=== PATIENT | female | born 1945 | race Caucasian/White ===

== ENCOUNTER 2017-08-21 19:09 | Inpatient (IN) | payer OTHER ==
[~2017-08-21] VITALS: Ht 162.6 cm; Wt 81.6 kg
--- NOTE | 2017-08-21 19:00 | NUR ---
Pt arrived via gurney, accompanied by family member. No apparent distress noted. Denies pain at this time. Breathing even and unlabored with normal respiration. Midline on SREE intact and patent. pertinent assessments done. Skin is intact. MD made aware regarding med reconciliation. Vital signs stable. MRSA swab done and sent to lab. Call light placed within reach. Safety and fall precautions observed and maintained. All needs attended.
[2017-08-21 20:30] VITALS: BP 127/60
[2017-08-21] MEDS ORDERED: VANC1PLA9 IV (20:56)
[2017-08-22 08:11] VITALS: BP 145/76
--- NOTE | 2017-08-22 10:00 | NUR ---
pt seen on rounding. pt continues to be alert and oriented x4. yvrose elevated. other vitals stable. pt complained of pain on movement. received report from jewelry enameler nurse that no med recon was done. contacted md during shift. md ordered to have meds from [facility] placed on med recon and he will continue it later. current meds from [facility] placed. awaiting md to continue medications.
[2017-08-22] MEDS ORDERED: ZOLP5TAB2 PO (10:59)
[2017-08-22] MEDS ORDERED: RIVA10TA PO (10:59)
[2017-08-22] MEDS ORDERED: HYDR-4075 IVP (10:59)
[2017-08-22] MEDS ORDERED: MAGN400O6 PO (10:59)
[2017-08-22] MEDS ORDERED: ACET-1467 PO (10:59)
[2017-08-22] MEDS ORDERED: ALBU2.5V38 IH (10:59)
[2017-08-22] MEDS ORDERED: DOCU-141 PO ×2 (10:59)
[2017-08-22] MEDS ORDERED: ONDA4TAB5 IVP (10:59)
[2017-08-22] MEDS ORDERED: DIPH25CA83 PO (10:59)
[2017-08-22] MEDS ORDERED: MAGN30OR PO (10:59)
[2017-08-22] MEDS ORDERED: HYDR-548 PO (10:59)
[2017-08-22] MEDS ORDERED: PANT40TA2 PO (10:59)
[2017-08-22] MEDS ORDERED: MORP15TA IM (10:59)
[2017-08-22] MEDS ORDERED: SENN-18 PO (10:59)
[2017-08-22] MEDS ORDERED: ACET-2154 PO (10:59)
[2017-08-22] MEDS ORDERED: DEXTROSE 50% 50 ML DISP.SYRIN IV PRN (11:00)
[2017-08-22] MEDS: BLOOD SUGAR DIAGNOSTIC 1 EACH STRIP VI SCH ×3 (11:48→20:20)
[2017-08-22] MEDS: INSULIN REGULAR, HUMAN 300 UNIT/3 ML VIAL SQ PRN ×3 (11:59→20:21)
[2017-08-22] MEDS ORDERED: ALBUTEROL SULFATE 2.5 MG/3 ML NEBU IH PRN (16:00)
[2017-08-22] MEDS ORDERED: ZOLPIDEM 5 MG TABLET PO PRN (16:00)
[2017-08-22] MEDS ORDERED: ACETAMINOPHEN 325 MG TABLET PO PRN (16:00)
[2017-08-22] MEDS ORDERED: SENNOSIDES 1 TABLET PO PRN (16:00)
[2017-08-22] MEDS ORDERED: BISACODYL 5 MG TABLET.DR PO ONE (16:15)
[2017-08-22] MEDS ORDERED: DOCUSATE SODIUM 250 MG CAPSULE PO PRN (16:30)
[2017-08-22] MEDS ORDERED: MAG HYDROX/AL HYDROX/SIMETH 30 ML LIQUID UDC PO PRN (16:45)
[2017-08-22] MEDS: RIVAROXABAN 10 MG TABLET PO SCH (17:07)
--- NOTE | 2017-08-22 17:43 | NUR ---
CLINICAL PHARMACY NOTE:VANCOMYCIN DOSING Request for vancomycin dosing on 71 y/o female 162.56 cm tall and weight 81.647 for cellulitis of hip. Patients transfered from [facility] to [facility]. Patient was started on vancomycin at [place]. Temp 98.8 BUN 16 Scr 0.9 WBC 5.1 vancomycin 1gm ivpb q18h estimate trough 14. Will order trough level prior to 4th dose. Will continue to monitor
--- NOTE | 2017-08-22 19:00 | NUR ---
pt stable throughout the day. pt continues to have pain on movement. pt given bisacodyl and had a bm. reconed the meds and given xarelto. pumps on. no new orders. will endorse to night warehouse manager nurse.
[2017-08-22 19:30] VITALS: BP 149/69
--- NOTE | 2017-08-22 19:30 | NUR ---
Received patient from day shift nurse. Report given at bedside. Patient is A/O x4, Tajik/Micronesian speaking, able to make needs known. No current signs of pain, sob, or acute distress noted. BP slightly elevated at 149/69 at start of shift. Will re assess BP later in shift. Patient noted with left upper arm midline double lumen 18G. IV site is clean, dry, intact, with no s/s of redness or infection. Midline is flushing well. Room checked for safety at start of shift. Bed placed in low position. Bed alarm on. Call light within reach. will continue to monitor through shift.
[2017-08-22] MEDS ORDERED: VANCOMYCIN IV 1 G in PREMIXED 0 EACH IV SCH (21:00)
--- NOTE | 2017-08-23 05:54 | NUR ---
Patient was awake for most of the shift. No acute distress noted. Patient had Right hip pain but refused pain meds stating "I'm not psycho person to get medication". Educated pt about pain medication. Still refused. Repositioned & turned every 2 hours. Incision site kept clean, dry, intact. No s/s of redness or swelling noted. All needs attended to. Bed huber offered through shift. All meds administered per MD order. Safety measures implemented. Call light within reach of pt. Will endorse to day shift nurse.
[2017-08-23] MEDS: PANTOPRAZOLE SODIUM 40 MG TABLET.DR PO SCH (06:21)
[2017-08-23] MEDS: BLOOD SUGAR DIAGNOSTIC 1 EACH STRIP VI SCH ×4 (06:36→20:13)
[2017-08-23] MEDS: INSULIN REGULAR, HUMAN 300 UNIT/3 ML VIAL SQ PRN ×4 (07:59→20:15)
[2017-08-23 08:00] VITALS: BP 141/69
--- NOTE | 2017-08-23 08:22 | NUR ---
patient noted resting in bed, facial cues of pain noted, when offered pain medication patient refused, will retry to administer pain medication, call light in reach, surgical dressing intact on right hip, no drainage noted, bed locked and in lowest position, x 2 bed rails, placed on bed huber at this time, linens changed at this time, repositioned on left lateral side
[2017-08-23] MEDS: HYDROCODONE/APAP 5-325MG TABLET PO PRN ×3 (08:42→21:35)
[2017-08-23] MEDS ORDERED: VANCOMYCIN IV 1 G in PREMIXED 0 EACH IV SCH (09:44)
--- NOTE | 2017-08-23 13:31 | NUR ---
CLINICAL PHARMACY NOTE:VANCOMYCIN DOSING To continue vancomycin dosing on 71 y/o female 162.56 cm tall and weight 81.647 for cellulitis of hip. Patients transfered from [facility] to [facility]. Patient was started on vancomycin at [place]. Temp 97.9 BUN 16 (3/7) Scr 0.9 (3/7) WBC 5.1 (3/7) Assessment/Plan Will continue vancomycin 1gm ivpb q18h estimate trough 14. 2nd dose today at 1500. Will order trough level prior to 4th dose (not ordered yet). Will continue to monitor
[2017-08-23] MEDS: VANCOMYCIN IV 1 G in PREMIXED 0 EACH IV SCH (14:39)
[2017-08-23] MEDS: RIVAROXABAN 10 MG TABLET PO SCH (17:10)
--- NOTE | 2017-08-23 19:30 | NUR ---
Received patient from day shift nurse. Patient currently lying in bed comfortably denying pain. No signs of acute distress or sob noted. Pertinent assessment completed. Right hip incision clean, dry, intact. No signs of infection, redness, or swelling noted. Vital signs WNL. patient is able to make needs known. Bed in low position x2 side rails up. Call light within reach. Will continue to monitor patient through shift.
--- NOTE | 2017-08-23 19:55 | NUR ---
New order from MD Ang for Dulcolax supp HS PRN. Patient stating that she hasn't had a BM for 8 days. Will carry out order & continue to monitor pt through shift.
[2017-08-23] MEDS ORDERED: BISACODYL 10 MG SUPP.RECT RC PRN (20:00)
[2017-08-23 20:12] VITALS: BP 127/63
[2017-08-24] MEDS: HYDROCODONE/APAP 5-325MG TABLET PO PRN ×3 (05:38→14:16)
--- NOTE | 2017-08-24 05:46 | NUR ---
Patient noted with constipation. No BM during shift. Administered Dulcolax supp per MD order. Patient refused to be given supp at night and wanted it in AM. Will endorse to day shift nurse to monitor for BM. Patient stable through shift. No acute distress noted. Still complaining of right hip pain. Administered pain meds as ordered per MD. Right hip incision kept clean, dry, intact. No s/s of redness, inflammation, or infection. all needs attended to. Safety measures implemented. Call light within reach. Will endorse to day shift RN.
[2017-08-24] MEDS: PANTOPRAZOLE SODIUM 40 MG TABLET.DR PO SCH (06:17)
[2017-08-24] MEDS: BLOOD SUGAR DIAGNOSTIC 1 EACH STRIP VI SCH ×4 (06:33→20:43)
--- NOTE | 2017-08-24 08:00 | NUR ---
patient noted resting in bed with eyes closed, no facial cues of pain, no signs of distress noted, call light in reach, bed locked and in lowest position, x 2 bed rails
[2017-08-24] MEDS: INSULIN REGULAR, HUMAN 300 UNIT/3 ML VIAL SQ PRN ×4 (08:04→20:45)
[2017-08-24] MEDS: VANCOMYCIN IV 1 G in PREMIXED 0 EACH IV SCH (08:08)
[2017-08-24 08:13] VITALS: BP 116/55
[2017-08-24 08:15] LABS: THYROID STIMULATING HORMONE 1.997 mIU/mL (0.358-3.740)
[2017-08-24 08:31] LABS: BASOPHILS % (AUTO) 0.8 % (0.0-2.0); EOSINOPHILS # (AUTO) 0.3 K/uL (0.0-0.7); EOSINOPHILS % (AUTO) 4.6 % (0.0-7.0); HEMATOCRIT 26.7 % (31.2-41.9); HEMOGLOBIN 8.7 g/dL (10.9-14.3); LYMPHOCYTES # (AUTO) 1.1 K/uL (20.0-40.0); LYMPHOCYTES % (AUTO) 20.4 % (20.5-51.5); MEAN CORPUSCULAR HEMOGLOBIN 25.5 uug (24.7-32.8); MEAN CORPUSCULAR HGB CONC 33 g/dL (32.3-35.6); MEAN CORPUSCULAR VOLUME 78.4 fL (75.5-95.3); MONOCYTES # (AUTO) 0.5 K/uL (2.0-10.0); MONOCYTES % (AUTO) 8.1 % (0.0-11.0); NEUTROPHILS # (AUTO) 3.7 K/uL (1.8-8.9); NEUTROPHILS % (AUTO) 66.1 % (38.5-71.5); PLATELET COUNT (AUTO) 385 K/uL (179-408); RED BLOOD CELL COUNT(AUTO) 3.41 MIL/uL (3.63-4.92)
[2017-08-24 08:32] LABS: WHITE BLOOD COUNT (AUTO) 5.6 K/uL (3.8-11.8)
[2017-08-24 09:54] LABS: BILIRUBIN,TOTAL 0.3 mg/dL (0.2-1.0); MAGNESIUM 1.9 mg/dL (1.8-2.4); PHOSPHOROUS 3.8 mg/dL (2.5-4.9); TOTAL PROTEIN, SERUM 7.3 g/dL (6.4-8.2)
--- NOTE | 2017-08-24 12:17 | NUR ---
CLINICAL PHARMACY NOTE:VANCOMYCIN DOSING To continue vancomycin dosing on 71 y/o female 162.56 cm tall and weight 81.647 for cellulitis of hip. Patients transfered from [facility] to [facility]. Patient was started on vancomycin at [place]. Temp 98.6 BUN 20 scr 1.0 WBC 5.6 Assessment/Plan Will continue vancomycin 1gm ivpb q18h estimate trough 14. 3rd dose given today at 0800. Will order trough level prior to 4th dose (ordered for tomorrow at 0230). Will continue to monitor
--- NOTE | 2017-08-24 13:15 | NUR ---
INTERDISCIPLINARY TEAM CONFERENCE
[2017-08-24] MEDS: RIVAROXABAN 10 MG TABLET PO SCH (17:02)
[2017-08-24 19:30] VITALS: BP 126/61
--- NOTE | 2017-08-24 19:30 | NUR ---
Patient currently lying in bed comfortably with no acute distress noted. A/Ox4, Dominican speaking, able to make needs known. Pertinent assessment completed. Vital signs within range at start of shift. Right hip incision clean, intact, dry, no s/s of redness or infection at surgical site. Right hip dressing intact and clean. Bed placed in low position, locked, x2 side rails up. Call light within reach. Will continue to monitor through shift.
[2017-08-24] MEDS: ATORVASTATIN 20 MG TABLET PO SCH (20:43)
[2017-08-24] MEDS: GLIMEPIRIDE 2 MG TABLET PO SCH (20:43)
[2017-08-25] MEDS: VANCOMYCIN IV 1 G in PREMIXED 0 EACH IV SCH ×3 (02:25→20:46)
--- NOTE | 2017-08-25 05:54 | NUR ---
Patient slept intermittently through shift. No acute distress noted. Pain meds administered for right hip pain. All needs attended to. Right hip incision kept clean, dry, intact. No s/s of infection or inflammation. Safety measures implemented. call light within reach. will endorse to day shift nurse.
[2017-08-25] MEDS: BLOOD SUGAR DIAGNOSTIC 1 EACH STRIP VI SCH ×4 (06:37→20:45)
[2017-08-25] MEDS: PANTOPRAZOLE SODIUM 40 MG TABLET.DR PO SCH (06:37)
[2017-08-25 07:00] VITALS: BP 157/76
--- NOTE | 2017-08-25 07:53 | NUR ---
patient noted resting in bed with eyes closed, no facial cues of pain noted, no signs of distress, call light in reach, bed locked and in lowest position, x 2 bed rails, bed alarm in place
[2017-08-25] MEDS: GLIMEPIRIDE 2 MG TABLET PO SCH ×2 (08:43→18:10)
[2017-08-25] MEDS: HYDROCODONE/APAP 5-325MG TABLET PO PRN ×2 (08:43→18:52)
[2017-08-25] MEDS: INSULIN REGULAR, HUMAN 300 UNIT/3 ML VIAL SQ PRN ×2 (12:24→21:09)
[2017-08-25] MEDS ORDERED: OXYCODONE HCL 10 MG TAB.SR.12H PO SCH (13:00)
--- NOTE | 2017-08-25 14:45 | NUR ---
CLINICAL PHARMACY NOTE:VANCOMYCIN DOSING S: To continue vancomycin dosing on 71 y/o female 162.56 cm tall and weight 81.647 for cellulitis of hip. Patients transfered from [facility] to [facility]. Patient was started on vancomycin at [place]. O: Temp 98 BUN 20 (3/9) scr 1.0 (3/9) WBC 5.6 (3/9) vanco trough level: 17.1 mcg/ml Assessment/Plan Will continue same dose of vancomycin 1gm ivpb q18h for today since vanco trough level is within therapeutic range. Next dose is due today at 2100. Will continue to monitor
[2017-08-25] MEDS: OXYCODONE HCL 10 MG TAB.SR.12H PO SCH ×2 (15:02→21:10)
[2017-08-25] MEDS: RIVAROXABAN 10 MG TABLET PO SCH (18:11)
[2017-08-25] MEDS ORDERED: diphenhydrAMINE 25 MG CAP PO PRN (18:15)
[2017-08-25] MEDS: diphenhydrAMINE 25 MG CAP PO PRN (18:52)
--- NOTE | 2017-08-25 18:56 | NUR ---
patient states she feels itchy, MD Ang notified with orders for benadryl 25 mg capsule Q6 Hour as needed, PRN given at this time
--- NOTE | 2017-08-25 19:35 | NUR ---
Pt resting comfortably in bed. AAO x4. No acute distress noted. C/o pain on right hip, on surgical site. Will f/u with intervention. Safety measures maintained. Call light and personal belongings within reach. Will continue to monitor.
[2017-08-25 19:41] VITALS: BP 126/63
[2017-08-25] MEDS: ATORVASTATIN 20 MG TABLET PO SCH (20:45)
--- NOTE | 2017-08-25 21:00 | NUR ---
Pt refused scheduled Oxycodone. Risks and benefits explained, teachings provided. C/o pain on the right hip, surgical site. Given ice pack to relieve pain. As per patient, she developed itchiness on her body when she took the afternoon dose of oxycodone and the itchiness is making her really uncomfortable. No signs or c/o difficulty breathing. No hives or other allergic symptoms or adverse reactions presented other than the itchiness. MD aware. PRN Benadryl was already ordered. Will f/u with other interventions. Will continue to monitor.
--- NOTE | 2017-08-26 05:38 | NUR ---
Pt slept intermittently at night. Meds given per MD's order. Assisted with bedpan as needed. Z-guard applied for itchiness and it helped relieve the pt's itchiness on the back area. All needs attended to promptly. Will endorse to day shift RN. Continue to monitor.
[2017-08-26] MEDS: OXYCODONE HCL 10 MG TAB.SR.12H PO SCH (06:00)
[2017-08-26] MEDS: PANTOPRAZOLE SODIUM 40 MG TABLET.DR PO SCH (06:23)
[2017-08-26] MEDS: HYDROCODONE/APAP 5-325MG TABLET PO PRN ×2 (06:23→10:35)
[2017-08-26] MEDS: BLOOD SUGAR DIAGNOSTIC 1 EACH STRIP VI SCH ×4 (06:30→21:08)
[2017-08-26] MEDS: Z GUARD REMEDY PASTE 57 GM TUBE TOP PRN (06:31)
[2017-08-26 07:45] VITALS: BP 115/60
--- NOTE | 2017-08-26 08:03 | NUR ---
Received patient asleep, easily arousable, not in any form of acute distress. No noted signs of pain or discomfort. Call light placed within reach.
[2017-08-26] MEDS: GLIMEPIRIDE 2 MG TABLET PO SCH ×2 (08:41→18:15)
--- NOTE | 2017-08-26 09:29 | NUR ---
Patient up on the wheelchair with physical therapist
--- NOTE | 2017-08-26 10:06 | NUR ---
CLINICAL PHARMACY NOTE:VANCOMYCIN DOSING S: To continue vancomycin dosing on 71 y/o female 162.56 cm tall and weight 81.647 for cellulitis of hip. Patients transferred from [facility] to [facility]. Patient was started on vancomycin at [place]. O: Temp 98.1 BUN 20 (3/9) scr 1.0 (9) WBC 5.6 (08/24) Assessment/Plan Will continue same dose of vancomycin 1gm ivpb q18h for today. Next dose is due today at 1500. Will continue to monitor
[2017-08-26] MEDS: INSULIN REGULAR, HUMAN 300 UNIT/3 ML VIAL SQ PRN ×2 (12:33→21:12)
[2017-08-26] MEDS: MORPHINE SULFATE SR 15 MG TABLET.SA PO SCH ×2 (14:00→21:08)
--- NOTE | 2017-08-26 15:00 | NUR ---
Patient refused to take morphine as ordered. Patient stated that she is not in pain at this time and doesn't want scheduled pain medicine but only before she goes for therapy. Explained benefits and risks but patient still refused.
[2017-08-26] MEDS: VANCOMYCIN IV 1 G in PREMIXED 0 EACH IV SCH (16:09)
[2017-08-26] MEDS: RIVAROXABAN 10 MG TABLET PO SCH (18:16)
[2017-08-26] MEDS: diphenhydrAMINE 25 MG CAP PO PRN (18:21)
--- NOTE | 2017-08-26 19:20 | NUR ---
Patient states relief of itching with benadryl.
[2017-08-26 19:30] VITALS: BP 144/73
--- NOTE | 2017-08-26 19:30 | NUR ---
Pt resting in bed. AAO x4. No acute distress noted. C/o of pain on right hip and generalized itchiness that is more prominent on the back area. Will follow up with interventions. Safety measures maintained. Call light and personal belongings within reach. Will continue to monitor.
[2017-08-26] MEDS: ATORVASTATIN 20 MG TABLET PO SCH (21:07)
--- NOTE | 2017-08-26 21:30 | NUR ---
Dr. Ang doing rounds and seen pt. aware of pt's generalized itchiness. has new order for Pepcid 20 mg PO BID and to discontinue Protonix.
--- NOTE | 2017-08-27 05:43 | NUR ---
Pt slept intermittently at night. Pt still c/o mild pain and itchiness but appears to be better than yesterday. Dressing changed on surgical site. No s/s of infection noted. Assisted using the bed huber as needed. All needs attended to promptly. Will endorse to day shift RN. Continue to monitor.
[2017-08-27] MEDS: MORPHINE SULFATE SR 15 MG TABLET.SA PO SCH ×3 (06:28→21:06)
[2017-08-27] MEDS: BLOOD SUGAR DIAGNOSTIC 1 EACH STRIP VI SCH ×4 (06:32→21:06)
[2017-08-27 08:00] VITALS: BP 123/75
--- NOTE | 2017-08-27 08:00 | NUR ---
Received patient awake, verbally responsive, coherent. No noted signs of distress. No complain of pain or any discomfort at this time. Call light placed within reach.
[2017-08-27] MEDS: FAMOTIDINE 20 MG TABLET PO SCH ×2 (08:35→21:05)
[2017-08-27] MEDS: LISINOPRIL 5 MG TABLET PO SCH (08:35)
[2017-08-27] MEDS: GLIMEPIRIDE 2 MG TABLET PO SCH ×2 (08:35→17:13)
[2017-08-27] MEDS: VANCOMYCIN IV 1 G in PREMIXED 0 EACH IV SCH (09:00)
--- NOTE | 2017-08-27 09:00 | NUR ---
Followed up with Dr. Ang if OK to administer due IV Vancomycin because patient was noted with itching after completion of dose IV vancomycin yesterday. Per MD wallace OK
--- NOTE | 2017-08-27 10:00 | NUR ---
Patient refused IV vancomycin. Notified regarding refusal and if any new order and per MD he will ask ID to see pt.
[2017-08-27] MEDS: INSULIN REGULAR, HUMAN 300 UNIT/3 ML VIAL SQ PRN ×2 (14:07→17:17)
--- NOTE | 2017-08-27 14:37 | NUR ---
CLINICAL PHARMACY NOTE:VANCOMYCIN DOSING S: To continue vancomycin dosing on 71 y/o female 162.56 cm tall and weight 81.647 for cellulitis of hip. Patients transferred from [facility] to [facility]. Patient was started on vancomycin at [place]. O: Temp 97.6 BUN 20 (3/9) scr 1.0 (08/24) WBC 5.6 (08/24) Assessment/Plan Will continue same dose of vancomycin 1gm ivpb q18h for today as last trough within range and pt status has remained unchanged. Will continue to monitor
[2017-08-27] MEDS: diphenhydrAMINE 25 MG CAP PO PRN (16:25)
[2017-08-27] MEDS: RIVAROXABAN 10 MG TABLET PO SCH (17:16)
--- NOTE | 2017-08-27 19:42 | NUR ---
Pt resting comfortably in bed. AAO x4. No acute distress noted. No c/o pain or discomfort at this time. Left upper arm midline patent and intact. Assisted with bed huber. No c/o of itchiness at this time. Safety measures maintained. Call light and personal belongings within reach. Will continue to monitor.
[2017-08-27 20:00] VITALS: BP 92/49
--- NOTE | 2017-08-27 20:30 | NUR ---
Pt was seen by infectious disease specialist. Pt complaining of itchiness with IV Vanco. As per ID, she will switch IV Vanco to IV Zyvox. Will follow order and continue to monitor pt.
[2017-08-27] MEDS: ATORVASTATIN 20 MG TABLET PO SCH (21:05)
[2017-08-27] MEDS: LINEZOLID IV 600 MG in PREMIXED 1 EACH IV SCH (21:19)
[2017-08-27 22:36] VITALS: BP 93/42
--- NOTE | 2017-08-28 05:31 | NUR ---
Pt slept intermittently at night, but more comfortably than the other few nights. Meds given per MD's order. Pt compliant. All needs attended to promptly. Assisted with bedpan as needed. Will endorse to day shift RN. Continue to monitor.
[2017-08-28] MEDS: MORPHINE SULFATE SR 15 MG TABLET.SA PO SCH ×3 (06:29→21:48)
[2017-08-28] MEDS: BLOOD SUGAR DIAGNOSTIC 1 EACH STRIP VI SCH ×4 (06:35→20:13)
[2017-08-28 07:00] VITALS: BP 111/53
[2017-08-28] MEDS: INSULIN REGULAR, HUMAN 300 UNIT/3 ML VIAL SQ PRN ×3 (07:47→20:14)
[2017-08-28 08:48] LABS: BASOPHILS % (AUTO) 0.6 % (0.0-2.0); EOSINOPHILS # (AUTO) 0.3 K/uL (0.0-0.7); EOSINOPHILS % (AUTO) 4.4 % (0.0-7.0); HEMATOCRIT 28.5 % (31.2-41.9); HEMOGLOBIN 9.3 g/dL (10.9-14.3); LYMPHOCYTES # (AUTO) 1.7 K/uL (20.0-40.0); LYMPHOCYTES % (AUTO) 22.9 % (20.5-51.5); MEAN CORPUSCULAR HEMOGLOBIN 25.7 uug (24.7-32.8); MEAN CORPUSCULAR HGB CONC 33 g/dL (32.3-35.6); MONOCYTES # (AUTO) 0.6 K/uL (2.0-10.0); MONOCYTES % (AUTO) 8.6 % (0.0-11.0); NEUTROPHILS # (AUTO) 4.8 K/uL (1.8-8.9); NEUTROPHILS % (AUTO) 63.5 % (38.5-71.5); PLATELET COUNT (AUTO) 377 K/uL (179-408); RED BLOOD CELL COUNT(AUTO) 3.61 MIL/uL (3.63-4.92); WHITE BLOOD COUNT (AUTO) 7.5 K/uL (3.8-11.8)
[2017-08-28] MEDS: diphenhydrAMINE 25 MG CAP PO PRN (08:52)
[2017-08-28] MEDS: FAMOTIDINE 20 MG TABLET PO SCH ×2 (08:53→20:11)
[2017-08-28] MEDS: GLIMEPIRIDE 2 MG TABLET PO SCH ×2 (08:53→17:32)
[2017-08-28] MEDS: LISINOPRIL 5 MG TABLET PO SCH (08:53)
[2017-08-28] MEDS: LINEZOLID IV 600 MG in PREMIXED 1 EACH IV SCH (08:55)
[2017-08-28 09:05] LABS: BILIRUBIN,TOTAL 0.4 mg/dL (0.2-1.0); CREATININE 1.1 mg/dL (0.6-1.3); MAGNESIUM 2.1 mg/dL (1.8-2.4); POTASSIUM 4.2 mmol/L (3.5-5.1); TOTAL PROTEIN, SERUM 7.7 g/dL (6.4-8.2)
--- NOTE | 2017-08-28 09:24 | NUR ---
Patient noted resting in bed with eyes closed, no facial cues of pain noted, no signs of distress, call light in reach, bed locked and in lowest position, x [address], bed alarm in place
--- NOTE | 2017-08-28 15:20 | NUR ---
Window Sash Installer Bio: SW met pt at bedside to assess for needs and provide support. Pt is a 71-year-old female who states she was admitted to ARU after hip surgery. Pt states she had a hip replacement years ago and her hip broke so they are rebuilding it for her. 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 Pt was admitted to ARU on August 21, 2017. Mental Status: Pt appeared alert and oriented x4 during interview. She presented in a hopeless mood stating that she was in "so much pain." Pt also stated that the pain medication only helps if she does not move at all. Pt stated that she sometimes just wishes she could end the pain, but denies current suicidal ideation. Support System: Pt lives at home by herself. Pt states that she lives on the first floor and is able to care for herself. Her daughter comes to visit her in ARU during her lunch breaks and after work. Pt states that she also has a son, but he is busy working. Pt stated that her and her other son have . Goals: Pt would like to heal so that she is no longer in constant pain. Interventions: SW engaged in active listening. SW provided emotional support and counseling. SW will provide resources for caregivers if needed. SW will provide linkage to case management. SW will encourage pt to comply with rehab goals.
[2017-08-28] MEDS: RIVAROXABAN 10 MG TABLET PO SCH (17:33)
--- NOTE | 2017-08-28 19:00 | NUR ---
Received patient in bed. Alert and verbally responsive. Able to make needs known. Denies any pain and discomfort. No acute distress. No SOB. Kept clean and dry. All needs attended to promptly. Call light within reach. Will continue to monitor.
[2017-08-28 20:09] VITALS: BP 114/55
[2017-08-28] MEDS: LINEZOLID 600 MG TABLET PO SCH (20:11)
[2017-08-28] MEDS: ATORVASTATIN 20 MG TABLET PO SCH (20:11)
--- NOTE | 2017-08-29 05:59 | NUR ---
Patient slept comfortably throughout the night. No c/o pain and discomfort. No acute distress. No SOB. Kept clean and dry. Assisted to the bathroom when needed. All needs attended to promptly. Call light within reach. Will continue to monitor.
[2017-08-29] MEDS: MORPHINE SULFATE SR 15 MG TABLET.SA PO SCH ×3 (06:26→22:00)
[2017-08-29] MEDS: diphenhydrAMINE 25 MG CAP PO PRN (06:28)
[2017-08-29] MEDS: BLOOD SUGAR DIAGNOSTIC 1 EACH STRIP VI SCH ×5 (06:31→20:40)
[2017-08-29 07:07] VITALS: BP 119/59
[2017-08-29] MEDS: FAMOTIDINE 20 MG TABLET PO SCH ×3 (08:59→20:34)
[2017-08-29] MEDS: LINEZOLID 600 MG TABLET PO SCH ×3 (08:59→20:34)
[2017-08-29] MEDS: LISINOPRIL 5 MG TABLET PO SCH (09:00)
[2017-08-29] MEDS: GLIMEPIRIDE 2 MG TABLET PO SCH ×2 (09:00→17:01)
[2017-08-29] MEDS: INSULIN REGULAR, HUMAN 300 UNIT/3 ML VIAL SQ PRN ×2 (11:44→20:40)
--- NOTE | 2017-08-29 14:00 | NUR ---
Dressing change management director surgical site, dry not drainage noted no s/s of infection
--- NOTE | 2017-08-29 14:00 | NUR ---
REFUSED MORPHINE ROUTINE MEDICATION, PATIENT CLAIMS SHE DOES NOT NEED IT IT AT THIS TIME. DISCUSSED RISKS AND BENEFITS, PATIENT STILL REFUSED
[2017-08-29] MEDS: HYDROCODONE/APAP 5-325MG TABLET PO PRN (17:01)
[2017-08-29] MEDS: RIVAROXABAN 10 MG TABLET PO SCH (17:07)
--- NOTE | 2017-08-29 17:15 | NUR ---
COMPLAINED OF PAIN OVER RIGHT HIP RATED 10/10. NORCO PRN GIVEN.
[2017-08-29 20:06] VITALS: BP 136/78
[2017-08-29 20:16] VITALS: BP 100/62
[2017-08-29] MEDS: ATORVASTATIN 20 MG TABLET PO SCH (20:28)
[2017-08-30] MEDS: MORPHINE SULFATE SR 15 MG TABLET.SA PO SCH ×3 (05:45→21:13)
[2017-08-30] MEDS: BLOOD SUGAR DIAGNOSTIC 1 EACH STRIP VI SCH ×4 (06:30→21:05)
[2017-08-30 07:30] VITALS: BP 110/59
[2017-08-30 07:48] LABS: BASOPHILS % (AUTO) 0.2 % (0.0-2.0); EOSINOPHILS # (AUTO) 0.3 K/uL (0.0-0.7); EOSINOPHILS % (AUTO) 4.9 % (0.0-7.0); HEMATOCRIT 27.2 % (31.2-41.9); HEMOGLOBIN 8.9 g/dL (10.9-14.3); LYMPHOCYTES # (AUTO) 1.2 K/uL (20.0-40.0); LYMPHOCYTES % (AUTO) 21.7 % (20.5-51.5); MEAN CORPUSCULAR HEMOGLOBIN 25.8 uug (24.7-32.8); MEAN CORPUSCULAR HGB CONC 33 g/dL (32.3-35.6); MEAN CORPUSCULAR VOLUME 78.9 fL (75.5-95.3); MONOCYTES # (AUTO) 0.5 K/uL (2.0-10.0); MONOCYTES % (AUTO) 8.6 % (0.0-11.0); NEUTROPHILS # (AUTO) 3.6 K/uL (1.8-8.9); NEUTROPHILS % (AUTO) 64.6 % (38.5-71.5); PLATELET COUNT (AUTO) 347 K/uL (179-408); RED BLOOD CELL COUNT(AUTO) 3.45 MIL/uL (3.63-4.92)
[2017-08-30 08:12] LABS: WHITE BLOOD COUNT (AUTO) 5.6 K/uL (3.8-11.8)
[2017-08-30] MEDS: FAMOTIDINE 20 MG TABLET PO SCH ×2 (08:43→21:01)
[2017-08-30] MEDS: LINEZOLID 600 MG TABLET PO SCH ×2 (08:44→21:01)
[2017-08-30] MEDS: GLIMEPIRIDE 2 MG TABLET PO SCH ×2 (08:44→17:45)
[2017-08-30] MEDS: LISINOPRIL 5 MG TABLET PO SCH (08:50)
[2017-08-30] MEDS: HYDROCODONE/APAP 5-325MG TABLET PO PRN (11:26)
[2017-08-30] MEDS: INSULIN REGULAR, HUMAN 300 UNIT/3 ML VIAL SQ PRN ×2 (16:39→21:08)
[2017-08-30] MEDS: diphenhydrAMINE 25 MG CAP PO PRN (17:45)
[2017-08-30] MEDS: RIVAROXABAN 10 MG TABLET PO SCH (17:48)
[2017-08-30 20:00] VITALS: BP 119/63
[2017-08-30] MEDS: ATORVASTATIN 20 MG TABLET PO SCH (21:01)
--- NOTE | 2017-08-30 21:35 | NUR ---
oob in chair at beginning of the shift. aaox4 no acute distress noted. tolerated po meds well. on morphine 15 mg given at scheduled times. vital signs stable. right hip with cynthia intact with dressing clean dry and intact.voiding well. needs attended. accucheck @ 2100 132, 2units given as coverage. fall precautions maintained. siderails up for safety.
--- NOTE | 2017-08-31 04:53 | NUR ---
slept well most of the shift. needs attended. denies any pain nor any discomfort. will monitor patient. no acute distress noted. voiding well.
[2017-08-31] MEDS: MORPHINE SULFATE SR 15 MG TABLET.SA PO SCH ×3 (06:22→21:34)
[2017-08-31] MEDS: BLOOD SUGAR DIAGNOSTIC 1 EACH STRIP VI SCH ×4 (06:26→21:30)
--- NOTE | 2017-08-31 07:56 | NUR ---
PATIENT NOTED RESTING IN BED, NO FACIAL CUES OF PAIN NOTED, NO SIGNS OF DISTRESS NOTED, CALL LIGHT IN REACH, BED LOCKED AND IN LOWEST POSITION, X2 BED RAILS, ALL NEEDS MET AT THIS TIME.
[2017-08-31] MEDS: LISINOPRIL 5 MG TABLET PO SCH (09:00)
[2017-08-31] MEDS: diphenhydrAMINE 25 MG CAP PO PRN (09:14)
[2017-08-31] MEDS: HYDROCODONE/APAP 5-325MG TABLET PO PRN ×2 (09:14→15:25)
[2017-08-31] MEDS: GLIMEPIRIDE 2 MG TABLET PO SCH ×2 (09:14→17:30)
[2017-08-31] MEDS: FAMOTIDINE 20 MG TABLET PO SCH ×2 (09:14→21:31)
[2017-08-31] MEDS: LINEZOLID 600 MG TABLET PO SCH ×2 (09:15→21:31)
[2017-08-31] MEDS: INSULIN REGULAR, HUMAN 300 UNIT/3 ML VIAL SQ PRN ×2 (12:14→17:19)
--- NOTE | 2017-08-31 14:49 | NUR ---
INTERDISCIPLINARY TEAM CONFERENCE
[2017-08-31] MEDS: RIVAROXABAN 10 MG TABLET PO SCH (17:31)
--- NOTE | 2017-08-31 19:30 | NUR ---
Received patient laying bed, awake, alert and verbally speaking. Vital signs taken and recorded. No sob, or acute distress noted. Patient with left upper arm midline double lumen 18G. IV site is clean, dry, intact, with no s/s of redness or infection. Midline is flushing well. Room checked for safety at start of shift. Bed placed in low position. Bed alarm on. Call light within reach. will continue to monitor through shift.
[2017-08-31 20:45] VITALS: BP 121/65
[2017-08-31] MEDS: ATORVASTATIN 20 MG TABLET PO SCH (21:31)
--- NOTE | 2017-08-31 23:00 | NUR ---
Surgical dressing changed. Patient complained of itchiness around the tape of the surgical dressing, redness noted. Will continue to monitor the patient.
[2017-09-01] MEDS: BLOOD SUGAR DIAGNOSTIC 1 EACH STRIP VI SCH ×4 (06:48→20:42)
[2017-09-01] MEDS: MORPHINE SULFATE SR 15 MG TABLET.SA PO SCH ×3 (06:50→21:48)
--- NOTE | 2017-09-01 08:00 | NUR ---
Received pt. in bed resting, alert, awake, oriented x 4, in room air, no s/s of sob, calm and able to follow commands. Pt. speaks Cymraes but can speak Bermudian too. Provided pt. bedside nsg. care and assisted with needs and activities of daily living. HOB up @ this time. Pt. has a walker @ the bedside. Pt. can ambulate with the walker with PT during PT. activity. Pt. refused to eat her breakfast tray and just want to be placed in a sitting position. Pt. placed sitting in a chair and resting and fixing her personal stuff. Keep pt. informent foe the activities and care plan and get ready pt. for her 0900 am medications.
[2017-09-01 08:42] VITALS: BP 100/63
[2017-09-01] MEDS: GLIMEPIRIDE 2 MG TABLET PO SCH ×2 (09:00→16:51)
[2017-09-01] MEDS: LISINOPRIL 5 MG TABLET PO SCH (09:00)
[2017-09-01] MEDS: FAMOTIDINE 20 MG TABLET PO SCH ×2 (09:06→20:45)
[2017-09-01] MEDS: LINEZOLID 600 MG TABLET PO SCH ×2 (09:07→20:45)
[2017-09-01] MEDS: INSULIN REGULAR, HUMAN 300 UNIT/3 ML VIAL SQ PRN ×3 (12:13→20:42)
[2017-09-01] MEDS: RIVAROXABAN 10 MG TABLET PO SCH (18:41)
--- NOTE | 2017-09-01 20:00 | NUR ---
NSG: Received patient laying in bed. Alert and oriented x 4,verbally responsive. Able to make needs known. Denies any pain and discomfort. No acute distress. No SOB. assisted to use bathroom. ambulate with fww. Kept clean and dry. All needs attended to promptly. Call light within reach. Will continue to monitor.
[2017-09-01 20:14] VITALS: BP 134/64
[2017-09-01] MEDS: ATORVASTATIN 20 MG TABLET PO SCH (20:45)
[2017-09-01] MEDS: Z GUARD REMEDY PASTE 57 GM TUBE TOP PRN (20:46)
--- NOTE | 2017-09-01 23:00 | NUR ---
NSG; RIGHT HIP DRESSING DONE. NO SIGN INFECTION NOTED.
[2017-09-02] MEDS: MORPHINE SULFATE SR 15 MG TABLET.SA PO SCH ×3 (06:15→21:28)
[2017-09-02] MEDS: BLOOD SUGAR DIAGNOSTIC 1 EACH STRIP VI SCH ×4 (06:23→20:23)
--- NOTE | 2017-09-02 06:38 | NUR ---
nsg: Patient slept comfortably throughout the night. No c/o pain and discomfort. No acute distress. No SOB. Kept clean and dry. Assisted to the bathroom when needed. All needs attended to promptly. Call light within reach. blood sugar 92 mg/dl this am. Will continue to monitor.
[2017-09-02 07:30] VITALS: BP 109/65
[2017-09-02] MEDS: GLIMEPIRIDE 2 MG TABLET PO SCH ×2 (08:16→16:51)
[2017-09-02] MEDS: FAMOTIDINE 20 MG TABLET PO SCH ×2 (08:16→20:23)
[2017-09-02] MEDS: LINEZOLID 600 MG TABLET PO SCH ×2 (08:17→20:23)
[2017-09-02] MEDS: LISINOPRIL 5 MG TABLET PO SCH (09:00)
[2017-09-02] MEDS: INSULIN REGULAR, HUMAN 300 UNIT/3 ML VIAL SQ PRN ×3 (12:31→20:25)
[2017-09-02] MEDS: RIVAROXABAN 10 MG TABLET PO SCH (17:06)
--- NOTE | 2017-09-02 17:38 | NUR ---
Daily Nursing Note: Patient was stable during the shift, no episode of hypoglycemia or hyperglycemia noted, pain management provided, patient was encourage to drink PO fluids, she had a bowel movement. She was visited with family members, and all needs attended promptly. During the shift, patient stated that she is concerned about her surgical site, as to when will it be seen by her surgeon. Called after hours of her surgeons clinic, DR. Suraj Sanders, and told him the concern of the patient, he stated that he needs to see the patient this week. Patient was then informed as well as the family, appreciated the prompt response. police manager will be made aware, as well as the night nurse, to ensure continuos communication. All her needs attended promptly, patient was enthusiastic enough to walk and was assisted to do some laps, she tolerated it well. Provided with safety at all times.
--- NOTE | 2017-09-02 19:30 | NUR ---
Patient stable at start of shift with no acute distress noted. Patient is A/O x4, Italian/Malay speaking, & able to make needs known. Pertinent assessment completed. Currently, the patient is complaining of itchiness at surgical site due to surgical dressing tape. Will change dressing & assess site. Right hip incision is clean & dry. Redness noted on skin around surgical site due to itchiness. Noted with left upper arm midline which is flushing well. No s/s of redness or infection at IV site. Vital signs within range. Room checked for safety with bed in low position & locked. Call light within reach. Will continue to monitor through shift.
[2017-09-02 20:00] VITALS: BP 119/61
[2017-09-02] MEDS: ATORVASTATIN 20 MG TABLET PO SCH (20:23)
--- NOTE | 2017-09-02 20:45 | NUR ---
Right hip dressing changed with 4X4 gauze and paper tape due to skin irritation. Patient tolerated well and stated that her skin feels much better. Took pics and placed in patient's chart. Will also administer Benadryl per patient request & MD order to relieve itching. Will endorse to day shift nurse in AM to speak with Hospitalist regarding skin irritation from surgical dressing & continue to monitor through shift.
[2017-09-02] MEDS: diphenhydrAMINE 25 MG CAP PO PRN (21:28)
--- NOTE | 2017-09-03 05:56 | NUR ---
Patient slept well through shift. No acute distress noted. All needs attended to promptly. Medications administered as ordered per MD. Right hip dressing kept clean, dry, intact. No s/s of hyperglycemia or hypoglycemia noted. Safety measures implemented. Call light within reach. Will endorse to day shift nurse.
[2017-09-03] MEDS: MORPHINE SULFATE SR 15 MG TABLET.SA PO SCH ×3 (06:29→21:06)
[2017-09-03] MEDS: BLOOD SUGAR DIAGNOSTIC 1 EACH STRIP VI SCH ×4 (06:33→21:07)
[2017-09-03 07:51] VITALS: BP 137/67
--- NOTE | 2017-09-03 07:55 | NUR ---
patient noted laying in bed, blood pulled from midline for am labs, states mild pain 06/27, no signs of distress noted, call light in reach, bed locked and in lowest position, bed alarm in place, x 2 bed rails, all needs met at this time
[2017-09-03 08:18] LABS: BASOPHILS % (AUTO) 0.7 % (0.0-2.0); EOSINOPHILS # (AUTO) 0.3 K/uL (0.0-0.7); EOSINOPHILS % (AUTO) 5.6 % (0.0-7.0); HEMATOCRIT 24.9 % (31.2-41.9); HEMOGLOBIN 8.2 g/dL (10.9-14.3); LYMPHOCYTES # (AUTO) 1.4 K/uL (20.0-40.0); LYMPHOCYTES % (AUTO) 26.4 % (20.5-51.5); MEAN CORPUSCULAR HEMOGLOBIN 25.9 uug (24.7-32.8); MEAN CORPUSCULAR HGB CONC 33 g/dL (32.3-35.6); MEAN CORPUSCULAR VOLUME 78.7 fL (75.5-95.3); MONOCYTES # (AUTO) 0.4 K/uL (2.0-10.0); MONOCYTES % (AUTO) 7.2 % (0.0-11.0); NEUTROPHILS # (AUTO) 3.1 K/uL (1.8-8.9); NEUTROPHILS % (AUTO) 60.1 % (38.5-71.5); PLATELET COUNT (AUTO) 304 K/uL (179-408); RED BLOOD CELL COUNT(AUTO) 3.16 MIL/uL (3.63-4.92); WHITE BLOOD COUNT (AUTO) 5.2 K/uL (3.8-11.8)
--- NOTE | 2017-09-03 08:42 | NUR ---
I agree Addendum: 09/03/17 at 0843 by GAGAN MATIAS OT Amended: Links added.
[2017-09-03] MEDS: FAMOTIDINE 20 MG TABLET PO SCH ×2 (09:23→21:06)
[2017-09-03] MEDS: GLIMEPIRIDE 2 MG TABLET PO SCH ×2 (09:23→17:41)
[2017-09-03] MEDS: HYDROMORPHONE HCL 2 MG TABLET PO PRN (09:23)
[2017-09-03] MEDS: LINEZOLID 600 MG TABLET PO SCH ×2 (09:23→21:06)
[2017-09-03] MEDS: LISINOPRIL 5 MG TABLET PO SCH (09:24)
[2017-09-03] MEDS: INSULIN REGULAR, HUMAN 300 UNIT/3 ML VIAL SQ PRN ×2 (12:10→21:12)
[2017-09-03] MEDS: diphenhydrAMINE 25 MG CAP PO PRN (14:37)
[2017-09-03] MEDS: RIVAROXABAN 10 MG TABLET PO SCH (17:41)
--- NOTE | 2017-09-03 18:38 | NUR ---
Patient given PRN Dilaudid and Benadryl for pain and itching this shift, no other complaints noted, no signs of distress noted
[2017-09-03 19:30] VITALS: BP 140/67
--- NOTE | 2017-09-03 19:30 | NUR ---
Received patient from day shift nurse. Patient currently sitting in wheelchair at the bed side. No complaints of pain at the moment. No sob or acute distress noted. Pertinent assessment completed. patient concerned about discharge tomorrow stating that she feels she should stay in unit longer. dry yard worker & caseworker protective services on the case. Right hip incision is clean & dry. Dressing intact. No s/s of infection or swelling noted. Some redness noted on skin around surgical site due to reaction from surgical tape/dressing. Currently surgical site has 4x4 gauze with paper tape. Room checked for safety at start of shift. Call light within reach. Will continue to monitor through shift.
--- NOTE | 2017-09-03 20:30 | NUR ---
SENIOR CLINICAL DATA ANALYST Judeen at bedside talking with patient regarding care. Per SENIOR CLINICAL DATA ANALYST Patient should continue Zyvox even after D/C & patient needs f/u blood work to be done while on ATB therapy. Per SENIOR CLINICAL DATA ANALYST Zyvox may cause platelet count to decrease. Will endorse to Day shift nurse to discuss with CM & social director.
[2017-09-03] MEDS: ATORVASTATIN 20 MG TABLET PO SCH (21:06)
--- NOTE | 2017-09-04 05:58 | NUR ---
All needs attended to promptly. Dressing changed during shift with 4X4 gauze & paper tape. No s/s of infection or swelling noted at surgical site. Pain management provided per MD order. No s/s of hyperglycemia or hypoglycemia noted. Safety measures implemented. Call light within reach. Will endorse to day shift RN.
[2017-09-04] MEDS: MORPHINE SULFATE SR 15 MG TABLET.SA PO SCH ×3 (06:32→21:24)
[2017-09-04] MEDS: BLOOD SUGAR DIAGNOSTIC 1 EACH STRIP VI SCH ×4 (06:32→20:51)
[2017-09-04 07:00] VITALS: BP 108/48
[2017-09-04] MEDS: LINEZOLID 600 MG TABLET PO SCH ×2 (09:33→20:45)
[2017-09-04] MEDS: FAMOTIDINE 20 MG TABLET PO SCH ×2 (09:33→20:46)
[2017-09-04] MEDS: GLIMEPIRIDE 2 MG TABLET PO SCH ×2 (09:33→16:50)
[2017-09-04] MEDS: LISINOPRIL 5 MG TABLET PO SCH (09:34)
[2017-09-04] MEDS: HYDROMORPHONE HCL 2 MG TABLET PO PRN (09:38)
[2017-09-04] MEDS: RIVAROXABAN 10 MG TABLET PO SCH (16:51)
[2017-09-04 20:00] VITALS: BP 115/60
[2017-09-04] MEDS: ATORVASTATIN 20 MG TABLET PO SCH (20:45)
--- NOTE | 2017-09-04 21:30 | NUR ---
PATIENT IS AWAKE IN BED, SHE'S AOX4. SHE C/O PAIN TO RIGHT HIP, PAIN MEDS GIVEN ORDERED. BLOOD SUGAR 166 BUT PUT REFUSED SLIDING SCALE INSULIN, EXPLAINED TO PATIENTS EFFECTS OF REFUSING MEDS BUT PATIENT STILL REFUSED MEDS. ALL SAFETY AND COMFORT MEASURES IN PLACE, CALL LIGHT LEFT WITHIN PATIENT'S REACH
[2017-09-05] MEDS: MORPHINE SULFATE SR 15 MG TABLET.SA PO SCH ×3 (06:38→21:41)
[2017-09-05] MEDS: BLOOD SUGAR DIAGNOSTIC 1 EACH STRIP VI SCH ×4 (06:46→21:34)
--- NOTE | 2017-09-05 06:48 | NUR ---
PATIENT SLEPT WELL THROUGH THE NIGHT, V/S STABLE WITH NO SIGNIFICANT CHANGES IN STATUS.SAFETY MEASURES MAINTAINED AT ALL TIMES. ALL NEEDS MET ON THIS SHIFT
[2017-09-05 08:35] VITALS: BP 113/64
[2017-09-05] MEDS: HYDROMORPHONE HCL 2 MG TABLET PO PRN (09:38)
[2017-09-05] MEDS: GLIMEPIRIDE 2 MG TABLET PO SCH ×2 (09:38→17:00)
[2017-09-05] MEDS: FAMOTIDINE 20 MG TABLET PO SCH ×2 (09:40→21:32)
[2017-09-05] MEDS: LINEZOLID 600 MG TABLET PO SCH ×2 (09:40→21:43)
[2017-09-05] MEDS: LISINOPRIL 5 MG TABLET PO SCH (09:40)
[2017-09-05] MEDS: RIVAROXABAN 10 MG TABLET PO SCH (17:33)
--- NOTE | 2017-09-05 19:30 | NUR ---
Received patient seated on her wheelchair, awake, alert and verbally responsive. Vital signs taken and recorded. No sob, or acute distress noted. Room checked for safety at start of shift. Bed placed in low position. Bed alarm on. Pertinent assessment done. Call light within reach. will continue to monitor through shift.
[2017-09-05 20:13] VITALS: BP 149/63
[2017-09-05] MEDS: ATORVASTATIN 20 MG TABLET PO SCH (21:32)
[2017-09-06] MEDS: BLOOD SUGAR DIAGNOSTIC 1 EACH STRIP VI SCH ×4 (06:39→21:24)
[2017-09-06 08:23] VITALS: BP 141/65
[2017-09-06] MEDS: FAMOTIDINE 20 MG TABLET PO SCH ×3 (08:28→21:29)
[2017-09-06] MEDS: GLIMEPIRIDE 2 MG TABLET PO SCH ×2 (08:28→16:56)
[2017-09-06] MEDS: MORPHINE SULFATE SR 15 MG TABLET.SA PO SCH ×3 (08:28→22:00)
[2017-09-06] MEDS: LISINOPRIL 5 MG TABLET PO SCH (08:29)
[2017-09-06] MEDS: LINEZOLID 600 MG TABLET PO SCH ×2 (09:20→21:22)
[2017-09-06] MEDS: INSULIN REGULAR, HUMAN 300 UNIT/3 ML VIAL SQ PRN (12:11)
[2017-09-06] MEDS: RIVAROXABAN 10 MG TABLET PO SCH (17:01)
--- NOTE | 2017-09-06 19:12 | NUR ---
NURSE NOTES: Patient remained to be in stable condition throughout the shift with no acute changes. no SOB or distress noted. Al needs were attended and anticipated. Hourly rounding done. call light within reach at all times. Midline on left upper arm was removed with intact lumen. no bleeding noted on the site. all needs attended and anticipated. patient refused to take her Xarelto and glimepiride. explained risks and benefits several times still patient refused. patient said medicines upsets her stomach and that she already told the doctor when the doctor did his rounds today. MD notified of the refusal. will endorse to incoming shift
[2017-09-06] MEDS ORDERED: ONDANSETRON 4 MG/2 ML VIAL IV PRN (19:15)
--- NOTE | 2017-09-06 19:30 | NUR ---
Received patient in bed, awake, alert and verbally responsive. Vital signs taken and recorded. No s/s of any acute respiratory distress. Denies of any pain. Patient informed me she just vomited and she felt better after. Offered to give the Zofran IM but patient refused. Persistent assessment done. Safety measures provided. Call light in reach. Will monitor the patient.
[2017-09-06 20:00] VITALS: BP 125/81
[2017-09-06] MEDS: ATORVASTATIN 20 MG TABLET PO SCH ×2 (21:00→21:21)
--- NOTE | 2017-09-06 21:00 | NUR ---
Dressing changed per patient's request. Wound healing good and no discharges.
[2017-09-07] MEDS: MORPHINE SULFATE SR 15 MG TABLET.SA PO SCH (06:00)
[2017-09-07] MEDS: BLOOD SUGAR DIAGNOSTIC 1 EACH STRIP VI SCH ×4 (07:00→20:16)
[2017-09-07] MEDS ORDERED: ONDANSETRON HCL 4 MG TABLET PO PRN (08:15)
[2017-09-07 08:54] VITALS: BP 167/78
[2017-09-07] MEDS: LISINOPRIL 5 MG TABLET PO SCH (09:00)
[2017-09-07] MEDS: GLIMEPIRIDE 2 MG TABLET PO SCH ×2 (09:00→17:00)
[2017-09-07] MEDS: FAMOTIDINE 20 MG TABLET PO SCH (09:00)
[2017-09-07] MEDS: LINEZOLID 600 MG TABLET PO SCH ×2 (09:38→20:15)
--- NOTE | 2017-09-07 10:00 | NUR ---
NURSE NOTES: Patient alert and oriented, refused to take scheduled medications except for Zyvox. Patient denies nausea and pain at this time but stated "I don't want any medications. Those things kill me I just want my antibiotic" explained several times risks and benefits of each medications still patient strongly refused. Dr. Dean notified of the refusal. Call light within reach. Encouraged pt to use call light whenever assistance is needed. bed alarm on for safety. Will continue to monitor.
--- NOTE | 2017-09-07 11:56 | NUR ---
Accu check at 1130 done with BS 139. patient supposed to get Humulin R sliding scale but patient strongly refused. Explained importance of insulin and blood sugar checks as well as the risks and benefits still patient refused to get the insulin. Will continue to monitor.
--- NOTE | 2017-09-07 13:27 | NUR ---
INTERDISCIPLINARY TEAM CONFERENCE
--- NOTE | 2017-09-07 15:31 | NUR ---
NURSE NOTES: Patient was picked up by 2 EMT staff on a gurney in stable condition for her scheduled appointment with Dr. Sanders (Ortho) with all paper works including the copy of the x-ray with CD.
--- NOTE | 2017-09-07 17:19 | NUR ---
Patient came back from Appointment with Dr. Sanders in stable condition accompanied by 2 EMT staff on a gurney. with notes from Dr. Sanders 3 weeks after removal infected AURORA right- wound looks good. plan to continue the antibiotic for 3 months then re-implant AURORA. pharmacy informed.
--- NOTE | 2017-09-07 17:25 | NUR ---
Patient came back from appointment with cynthia removed. patient refused wound picture to be done. Explained importance of the wound picture but still patient refused. Accu check done with BS 144 but then patient refused to get her insulin and glimepiride and Xarelto. Explained several times the importance of each medications but still patient strongly refused to take medications. No episodes of n/v. also called dr. dean and informed about the [place] appointment and the plan of Dr. Sanders in regards to the antibiotic for [address] Dean, contact Dr. Domínguez (ID). called Dr. Domínguez, awaiting for call back.
[2017-09-07] MEDS: RIVAROXABAN 10 MG TABLET PO SCH (17:49)
--- NOTE | 2017-09-07 18:43 | NUR ---
NURSE NOTES: patient remained in stable condition with no acute changes. No SOB or distress. Call light within reach. Denies any pain at this time. hourly rounding done. all needs were attended and anticipated. Still waiting for call back from Dr. Domínguez. Will endorse to incoming shift
--- NOTE | 2017-09-07 19:30 | NUR ---
PATIENT SITTING IN THE W/C. NO C/O OF PAIN OR DISCOMFORT. WILL CONTINUE TO MONITOR
[2017-09-07] MEDS: ATORVASTATIN 20 MG TABLET PO SCH (20:16)
[2017-09-07 20:22] VITALS: BP 158/75
--- NOTE | 2017-09-07 21:00 | NUR ---
BS 132. PATIENT DECLINED INSULIN. ALSO SHE DECLINED LIPITOR 20 MG ORDERED. SHE STATED ESTRELLA MEDICATIONS MAKE HER SICK. EXPLAINED THE BENEFITS OF TAKING AND THE CONSEQUENCES OF NOT TAKING THE MEDICATION. PATIENT STILL DECLINED.
--- NOTE | 2017-09-08 06:17 | NUR ---
patient lying on on bed, arousable to verbal response.patient refusing the medications other than the atb. she stated that all the other medications gives her stomach problems. No fever. N, no n/v.safety measures obnserved
[2017-09-08] MEDS: BLOOD SUGAR DIAGNOSTIC 1 EACH STRIP VI SCH ×4 (06:38→20:52)
[2017-09-08] MEDS: PANTOPRAZOLE SODIUM 40 MG TABLET.DR PO SCH ×2 (06:38→06:51)
--- NOTE | 2017-09-08 06:51 | NUR ---
Patient refused protonix.
[2017-09-08 07:49] LABS: BASOPHILS % (AUTO) 0.7 % (0.0-2.0); EOSINOPHILS # (AUTO) 0.1 K/uL (0.0-0.7); HEMATOCRIT 26.6 % (31.2-41.9); HEMOGLOBIN 8.7 g/dL (10.9-14.3); LYMPHOCYTES % (AUTO) 29.2 % (20.5-51.5); MEAN CORPUSCULAR HEMOGLOBIN 25.7 uug (24.7-32.8); MEAN CORPUSCULAR HGB CONC 33 g/dL (32.3-35.6); MEAN CORPUSCULAR VOLUME 78.7 fL (75.5-95.3); MONOCYTES # (AUTO) 0.3 K/uL (2.0-10.0); MONOCYTES % (AUTO) 7.4 % (0.0-11.0); NEUTROPHILS # (AUTO) 2.1 K/uL (1.8-8.9); NEUTROPHILS % (AUTO) 59.7 % (38.5-71.5); RED BLOOD CELL COUNT(AUTO) 3.37 MIL/uL (3.63-4.92)
[2017-09-08 07:55] LABS: CREATININE 0.9 mg/dL (0.6-1.3); POTASSIUM 4.2 mmol/L (3.5-5.1)
[2017-09-08 07:58] LABS: PLATELET COUNT (AUTO) 211 K/uL (179-408); WHITE BLOOD COUNT (AUTO) 3.5 K/uL (3.8-11.8)
[2017-09-08 08:00] VITALS: BP 150/73
[2017-09-08] MEDS: LISINOPRIL 5 MG TABLET PO SCH (09:00)
[2017-09-08] MEDS: GLIMEPIRIDE 2 MG TABLET PO SCH ×2 (09:00→17:00)
[2017-09-08] MEDS: LINEZOLID 600 MG TABLET PO SCH ×2 (09:00→20:51)
--- NOTE | 2017-09-08 12:33 | NUR ---
MORNING MEDS REFUSED AM MEDS SHE SAYS THE MEDS ARE MAKING HER SICK TO HER STOMACH AND SHE DOES NOT WANT THEM.
[2017-09-08] MEDS: RIVAROXABAN 10 MG TABLET PO SCH (17:11)
--- NOTE | 2017-09-08 19:40 | NUR ---
Patient was sitting on the w/c. Assisted her to back to bed per request. Srinivas stated she does not want to take any medications as it makes her more sick. explained the benefits. Will diascyuss with the patient again.
[2017-09-08 19:59] VITALS: BP 124/50
--- NOTE | 2017-09-08 20:40 | NUR ---
Patient was seen by Dr. Barth.
[2017-09-08] MEDS: ATORVASTATIN 20 MG TABLET PO SCH (20:51)
--- NOTE | 2017-09-08 20:53 | NUR ---
BS 182. patient refused insulin , atb and the cholesterol medication scheduled for 2100. Dr. Mock aware. patient stated jason medications upset her stomach. she stated if jason atb changed to IV , she will take. Will endorse to morning shift to f/u.
--- NOTE | 2017-09-09 06:20 | NUR ---
Patient sleeping comfortably. still refusing her routine medications. BS 117. safety measures observed. call light in reach.
[2017-09-09] MEDS: BLOOD SUGAR DIAGNOSTIC 1 EACH STRIP VI SCH ×4 (06:40→21:00)
[2017-09-09] MEDS: PANTOPRAZOLE SODIUM 40 MG TABLET.DR PO SCH (06:40)
[2017-09-09 08:00] VITALS: BP 113/66
[2017-09-09 08:16] LABS: BASOPHILS % (AUTO) 0.4 % (0.0-2.0); EOSINOPHILS # (AUTO) 0.2 K/uL (0.0-0.7); EOSINOPHILS % (AUTO) 2.5 % (0.0-7.0); HEMATOCRIT 25.2 % (31.2-41.9); HEMOGLOBIN 8.4 g/dL (10.9-14.3); LYMPHOCYTES # (AUTO) 1.1 K/uL (20.0-40.0); MEAN CORPUSCULAR HEMOGLOBIN 26.1 uug (24.7-32.8); MEAN CORPUSCULAR HGB CONC 33 g/dL (32.3-35.6); MEAN CORPUSCULAR VOLUME 78.2 fL (75.5-95.3); MONOCYTES # (AUTO) 0.4 K/uL (2.0-10.0); NEUTROPHILS # (AUTO) 4.6 K/uL (1.8-8.9); NEUTROPHILS % (AUTO) 72.1 % (38.5-71.5); PLATELET COUNT (AUTO) 170 K/uL (179-408); RED BLOOD CELL COUNT(AUTO) 3.23 MIL/uL (3.63-4.92)
[2017-09-09] MEDS: GLIMEPIRIDE 2 MG TABLET PO SCH ×2 (09:00→17:00)
[2017-09-09] MEDS: LINEZOLID 600 MG TABLET PO SCH (09:00)
[2017-09-09] MEDS: LISINOPRIL 5 MG TABLET PO SCH (09:00)
[2017-09-09 09:16] LABS: WHITE BLOOD COUNT (AUTO) 6.3 K/uL (3.8-11.8)
--- NOTE | 2017-09-09 10:07 | NUR ---
REFUSING MEDS AND FOOD SHE SAYS HER STOMACH IS HURTING AND THE MEDICATION ESPECIALLY MAKES HER SICK AND SHE DOES NOT WANT IT . SHE ALSO SAYS SHE DOES NOT WANT TO EAT D/T STOMACH UPSET Addendum: 09/09/17 at 1019 by Komal Brito RN ENCOURAGING PO FLUID INTAKE WATER, MILK JUICE ETC
[2017-09-09] MEDS: RIVAROXABAN 10 MG TABLET PO SCH (17:17)
[2017-09-09] MEDS: LINEZOLID IV 600 MG in PREMIXED 1 EACH IV SCH (17:43)
[2017-09-09 19:30] VITALS: BP 136/58
--- NOTE | 2017-09-09 19:35 | NUR ---
Received patient laying bed, awake, alert and verbally responsive. Vital signs taken and recorded. No sob, or acute distress noted. Denies of pain and any N/V. Patient with left FA saline lock G22. IV site is clean, dry, intact, with no s/s of redness or infection. IV line is flushing well. Safety measures provided. Bed placed in low position. Bed alarm on. Call light within reach. will continue to monitor patient.
[2017-09-09] MEDS: ATORVASTATIN 20 MG TABLET PO SCH (21:00)
--- NOTE | 2017-09-09 21:00 | NUR ---
Patient refused to take the med. Lipitor saying she doesn't need it. Explained the risks and benefits, offered 3 times but still refused. HS Accu check taken 170mg/dL, also refused for insulin coverage. Will continue to monitor the patient.
[2017-09-10] MEDS: BLOOD SUGAR DIAGNOSTIC 1 EACH STRIP VI SCH ×4 (06:37→21:31)
[2017-09-10] MEDS: PANTOPRAZOLE SODIUM 40 MG TABLET.DR PO SCH (06:38)
[2017-09-10 07:05] VITALS: BP 119/76
--- NOTE | 2017-09-10 08:22 | NUR ---
patient noted sitting up in bed, complains of right hip pain but refuses pain medication, will give ice pack as alternative, no signs of distress noted, call light in reach, fsbs noted at 140..refuses insulin x2 attempts, all AM medications refused at this time
[2017-09-10] MEDS: GLIMEPIRIDE 2 MG TABLET PO SCH ×2 (09:00→17:00)
[2017-09-10] MEDS: LISINOPRIL 5 MG TABLET PO SCH (09:00)
[2017-09-10] MEDS: LINEZOLID IV 600 MG in PREMIXED 1 EACH IV SCH ×2 (09:18→21:26)
[2017-09-10] MEDS ORDERED: ONDANSETRON HCL 4 MG/5 ML UDC ORAL SOL GT PRN (10:00)
[2017-09-10] MEDS ORDERED: ONDANSETRON 4 MG/2 ML VIAL IV PRN (10:00)
[2017-09-10] MEDS ORDERED: ONDANSETRON ODT 4 MG TAB.RAPDIS SL PRN (10:15)
--- NOTE | 2017-09-10 11:59 | NUR ---
fsbs noted at 156, patient refused insulin, md cárdenas notified of patient refusing medication
[2017-09-10] MEDS: RIVAROXABAN 10 MG TABLET PO SCH (17:39)
--- NOTE | 2017-09-10 18:09 | NUR ---
fsbs noted at 142, patient refused insulin
--- NOTE | 2017-09-10 19:30 | NUR ---
Received patient seated on her wheelchair with family at bedside. Vital signs taken and recorded. No sob, or acute distress noted. Denies of pain and any N/V. Patient with left FA saline lock G22. IV site is clean, dry, intact, with no s/s of redness or infection. IV line is flushing well. Safety measures provided. Bed placed in low position. Bed alarm on. Call light within reach. will continue to monitor patient.
[2017-09-10 20:11] VITALS: BP 123/60
[2017-09-10] MEDS: ATORVASTATIN 20 MG TABLET PO SCH (21:00)
--- NOTE | 2017-09-10 21:25 | NUR ---
HS Accu check done, 141 mg/dL. Patient refused for insulin coverage. Patient also refused to take his Lipitor. Offered meds. 3x, explained risks and benefits but still patient still refused. will continue to monitor the patient.
[2017-09-11] MEDS: BLOOD SUGAR DIAGNOSTIC 1 EACH STRIP VI SCH ×4 (06:30→21:48)
[2017-09-11] MEDS: PANTOPRAZOLE SODIUM 40 MG TABLET.DR PO SCH (06:30)
[2017-09-11 07:02] LABS: BASOPHILS % (AUTO) 0.6 % (0.0-2.0); EOSINOPHILS # (AUTO) 0.2 K/uL (0.0-0.7); EOSINOPHILS % (AUTO) 4.3 % (0.0-7.0); HEMATOCRIT 24.8 % (31.2-41.9); HEMOGLOBIN 8.2 g/dL (10.9-14.3); LYMPHOCYTES # (AUTO) 1.4 K/uL (20.0-40.0); LYMPHOCYTES % (AUTO) 30.1 % (20.5-51.5); MEAN CORPUSCULAR HGB CONC 33 g/dL (32.3-35.6); MEAN CORPUSCULAR VOLUME 78.4 fL (75.5-95.3); MONOCYTES # (AUTO) 0.6 K/uL (2.0-10.0); MONOCYTES % (AUTO) 12.1 % (0.0-11.0); NEUTROPHILS # (AUTO) 2.4 K/uL (1.8-8.9); NEUTROPHILS % (AUTO) 52.9 % (38.5-71.5); PLATELET COUNT (AUTO) 142 K/uL (179-408); RED BLOOD CELL COUNT(AUTO) 3.16 MIL/uL (3.63-4.92); WHITE BLOOD COUNT (AUTO) 4.6 K/uL (3.8-11.8)
[2017-09-11 07:05] VITALS: BP 132/54
--- NOTE | 2017-09-11 08:52 | NUR ---
I agree Addendum: 09/11/17 at 0852 by GAGAN MATIAS OT Amended: Links added.
--- NOTE | 2017-09-11 08:53 | NUR ---
I agree Addendum: 09/11/17 at 0853 by GAGAN MATIAS OT Amended: Links added.
[2017-09-11] MEDS: GLIMEPIRIDE 2 MG TABLET PO SCH ×2 (09:00→16:44)
[2017-09-11] MEDS: LISINOPRIL 5 MG TABLET PO SCH (09:00)
[2017-09-11] MEDS: LINEZOLID IV 600 MG in PREMIXED 1 EACH IV SCH (09:21)
--- NOTE | 2017-09-11 12:47 | NUR ---
SBAR report received, board updated. Pt assessed, reports right hip discomfort tolerable without need of medication. Pt compliant only with IV antibiotic medications, refusing all PO medications. IV flushes intact, and patent. Reporting discomfort at insertion site during end of transfusion. Pt compliant with accuchecks, BS 153 prior to lunch, refusing insulin coverage. PT seen by TRAY DRIER and change to medications reviewed. Plan of care for today discussed. Bed in locked and lowest position, with side rails up x2. Call light and personal belongings placed within reach. All needs attended to. Pt able to make her needs known. Will continue to monitor.
[2017-09-11] MEDS ORDERED: LEVOFLOXACIN 500 MG/D5W 500 MG in PREMIXED 1 EACH IV SCH (13:00)
--- NOTE | 2017-09-11 13:00 | NUR ---
Pt refused IV antibiotics to be administered at this time due to working with therapy. Will continue to monitor and offer medications as scheduled, when permitted.
[2017-09-11] MEDS ORDERED: CEFAZOLIN 1 G VIAL IM SCH (14:00)
[2017-09-11] MEDS: CEFAZOLIN 1 G in PREMIXED 1 EACH IV SCH ×2 (16:24→21:49)
[2017-09-11] MEDS: RIVAROXABAN 10 MG TABLET PO SCH (17:04)
--- NOTE | 2017-09-11 17:07 | NUR ---
Pt compliant with antibiotic therapy at this time and denies feeling any adverse reactions from Levaquin or Ancef. BS 152, Pt refuses insulin coverage and all PO medication including Xarelto. Pt teaching provided. Pelvis CT results faxed to Dr. Sanders's office, confirmation of f/u appointment remaining 10/05/17 or changing with be determined tomorrow. Call light within reach along with personal items. All comfort and safety measures implemented. Will continue to monitor and endorse to oncoming electrostatic powder coating technician.
--- NOTE | 2017-09-11 19:35 | NUR ---
Patient in bed, awake and was watching TV. Patient is A/O x4 and verbally responsive. Vital signs taken and recorded. No sob, or acute distress noted. Denies of pain and any N/V. Patient with left FA saline lock G22. IV site is clean, dry, intact, with no s/s of redness or infection. IV line is flushing well. Safety measures provided. Bed placed in low position. Bed alarm on. Call light within reach. will continue to monitor patient.
[2017-09-11 20:56] VITALS: BP 11/69
[2017-09-11] MEDS: ATORVASTATIN 20 MG TABLET PO SCH (21:00)
[2017-09-12] MEDS: CEFAZOLIN 1 G in PREMIXED 1 EACH IV SCH (06:02)
[2017-09-12] MEDS: BLOOD SUGAR DIAGNOSTIC 1 EACH STRIP VI SCH (06:49)
[2017-09-12] MEDS: PANTOPRAZOLE SODIUM 40 MG TABLET.DR PO SCH (06:51)
[2017-09-12 08:00] VITALS: BP 158/71
[2017-09-12 09:00] VITALS: BP 158/71
[2017-09-12] MEDS: LISINOPRIL 5 MG TABLET PO SCH (09:00)
[2017-09-12] MEDS: GLIMEPIRIDE 2 MG TABLET PO SCH (09:00)
--- NOTE | 2017-09-12 10:18 | NUR ---
PATIENT NOTED SITTING UP IN BED, DENIES PAIN AT THIS TIME, NO SIGNS OF DISTRESS NOTED, CALL LIGHT IN REACH, BED LOCKED AND IN LOWEST POSITION, X2 BED RAILS, ALL NEEDS MET AT THIS TIME, DECLINED ALL AM MEDS
[2017-09-12] MEDS: HYDROMORPHONE HCL 2 MG TABLET PO PRN (12:19)
--- NOTE | 2017-09-12 13:00 | NUR ---
PATIENT LEFT FACILITY AT THIS TIME [facility]IA [facility], 143/74, 77 PULSE, 98.2 ORAL TEMPERATURE, 19 RESPIRATIONS, VITALS STABLE, EXIT CARE PROVIDED, DISCHARGE INSTRUCTIONS GIVEN, HARD COPY OF PHARMACY PAIN MEDICATIONS PROVIDED, PICTURES TAKEN AND PLACED IN CHART, DISCHARGED TO HOME WITH HOME HEALTH, FOLLOW UP APPOINT WITH DOCTOR WINN OCTOBER 08.
== END 2017-09-12 13:20 | disposition home health service (06) | DRG 560 ==
PROVIDERS: ADMIT Physical Medicine & Rehabilitation Pain Medicine; ATTEND Physical Medicine & Rehabilitation Pain Medicine
DX: Z47.32 Aftercare following explantation of hip joint prosthesis (principal); D68.59 Other primary thrombophilia; D69.59 Other secondary thrombocytopenia; E11.65 Type 2 diabetes mellitus with hyperglycemia; E66.01 Morbid (severe) obesity due to excess calories; D63.8 Anemia in other chronic diseases classified elsewhere; D50.9 Iron deficiency anemia, unspecified; I10 Essential (primary) hypertension; T84.51XD Infection and inflammatory reaction due to internal right hip prosthesis, subsequent encounter; I25.10 Atherosclerotic heart disease of native coronary artery without angina pectoris; K59.00 Constipation, unspecified; R53.1 Weakness; R21 Rash and other nonspecific skin eruption; T36.8X5A Adverse effect of other systemic antibiotics, initial encounter; Y92.239 Unspecified place in hospital as the place of occurrence of the external cause; L27.1 Localized skin eruption due to drugs and medicaments taken internally; E78.5 Hyperlipidemia, unspecified; K21.9 Gastro-esophageal reflux disease without esophagitis; K57.90 Diverticulosis of intestine, part unspecified, without perforation or abscess without bleeding; M19.90 Unspecified osteoarthritis, unspecified site; M85.80 Other specified disorders of bone density and structure, unspecified site; N20.0 Calculus of kidney; Z68.30 Body mass index [BMI] 30.0-30.9, adult; Z83.3 Family history of diabetes mellitus; Z88.0 Allergy status to penicillin; Z96.659 Presence of unspecified artificial knee joint; K30 Functional dyspepsia; Z88.1 Allergy status to other antibiotic agents
CPT/HCPCS: 36415; 73501; 82306; 83735; 84100; 84443; 84550; 85025; 92523; 92526; 92610; 97110; 97112; 97116; 97165; 97530; 97535; A4663; J0690; J1815; J1956; J2020; J2405; J3370; Q0163

== ENCOUNTER 2018-01-07 16:17 | Inpatient (IN) | payer OTHER ==
[~2018-01-07] VITALS: Ht 167.6 cm; Wt 77.1 kg
[~2018-01-07 16:17] MED LIST: ACET-1467 PO; ACET-2154 PO; ALBU2.5V38 IH; DIPH25CA83 PO; DOCU-141 PO; HYDR-4075 IVP; HYDR-548 PO; MAGN30OR PO; MAGN400O6 PO; MORP15TA IM; ONDA4TAB5 IVP; PANT40TA2 PO; RIVA10TA PO; SENN-18 PO; VANC1PLA9 IV; ZOLP5TAB2 PO
[2018-01-07] MEDS ORDERED: Z GUARD REMEDY PASTE 57 GM TUBE TOP PRN (18:45)
[2018-01-07] MEDS ORDERED: HYDR-3974 PO (19:45)
[2018-01-07] MEDS ORDERED: BISA-79 PO (19:45)
[2018-01-07] MEDS ORDERED: ZOLP5TAB8 PO (19:45)
[2018-01-07] MEDS ORDERED: MAGN400O6 PO (19:45)
[2018-01-07] MEDS ORDERED: DOCU100C36 PO (19:45)
[2018-01-07] MEDS ORDERED: RIVA20TA PO (19:45)
[2018-01-07] MEDS ORDERED: DIPH-530 PO (19:45)
[2018-01-07] MEDS ORDERED: SENN-18 PO (19:45)
[2018-01-07] MEDS ORDERED: ACET-2154 PO (19:45)
[2018-01-07] MEDS ORDERED: PANT40TA4 PO (19:45)
[2018-01-07] MEDS ORDERED: MAG355OR18 PO (19:45)
--- NOTE | 2018-01-07 21:00 | NUR ---
Patient received at bed watching TV. AAO X4. No acute distress or SOB was noted. According to day shift nurse, the patient admitted from [place] at 1830 with admitting diagnosis of Right Hip Replacement. No complain of pain. All safety measures maintained. Bed is in low position and bed alarm and brake are on, side rails up x2. Call light and personal belonging within reach. Continue to monitor.
[2018-01-07 22:00] VITALS: BP 137/65
[2018-01-07] MEDS ORDERED: ZOLPIDEM 5 MG TABLET PO SCH (23:00)
[2018-01-07] MEDS ORDERED: SENNOSIDES 1 TABLET PO PRN (23:00)
[2018-01-07] MEDS ORDERED: MAGNESIUM HYDROXIDE 30 ML LIQUID UDC PO PRN (23:00)
[2018-01-07] MEDS ORDERED: ACETAMINOPHEN 325 MG TABLET PO PRN (23:00)
[2018-01-07] MEDS ORDERED: BISACODYL 5 MG TABLET.DR PO PRN (23:00)
--- NOTE | 2018-01-08 04:55 | NUR ---
Patient complains of her room, she wanted to change her room. Reassured to endorse to the day shift nurse. She also complained of pain in right hip, but preferred to have pain medication at morning. continue to monitor.
[2018-01-08 07:06] LABS: BASOPHILS % (AUTO) 0.6 % (0.0-2.0); EOSINOPHILS # (AUTO) 0.3 K/uL (0.0-0.7); HEMATOCRIT 29.5 % (31.2-41.9); LYMPHOCYTES # (AUTO) 1.7 K/uL (20.0-40.0); MEAN CORPUSCULAR HGB CONC 34 g/dL (32.3-35.6); MONOCYTES # (AUTO) 0.5 K/uL (2.0-10.0); NEUTROPHILS # (AUTO) 4.1 K/uL (1.8-8.9); NEUTROPHILS % (AUTO) 61.4 % (38.5-71.5); PLATELET COUNT (AUTO) 283 K/uL (179-408); RED BLOOD CELL COUNT(AUTO) 3.55 MIL/uL (3.63-4.92); WHITE BLOOD COUNT (AUTO) 6.6 K/uL (3.8-11.8)
--- NOTE | 2018-01-08 07:08 | NUR ---
Patient refused to take her 0730 medication. She wants to see her Dr. bella. will endorse to the day shift nurse.
[2018-01-08 07:13] LABS: CARBON DIOXIDE 32 mmol/L (21-32); CHLORIDE 100 mmol/L (98-107); CHOLESTEROL 234 mg/dL (<200); CREATININE 0.9 mg/dL (0.6-1.3); GLUCOSE 181 mg/dL (74-106); HDL CHOLESTEROL 54 mg/dL (40-60); MAGNESIUM 1.8 mg/dL (1.8-2.4); PHOSPHOROUS 3.7 mg/dL (2.5-4.9); POTASSIUM 3.8 mmol/L (3.5-5.1); TRIGLYCERIDES 138 MG/DL (30-150); UREA NITROGEN, BLOOD 19 mg/dL (7-18)
[2018-01-08] MEDS: PANTOPRAZOLE SODIUM 40 MG TABLET.DR PO SCH (07:30)
[2018-01-08] MEDS: DOCUSATE SODIUM 100 MG CAPSULE PO SCH ×2 (09:32→16:49)
[2018-01-08] MEDS ORDERED: MAG HYDROX/AL HYDROX/SIMETH 30 ML LIQUID UDC PO PRN (11:45)
[2018-01-08 16:23] VITALS: BP 127/64
[2018-01-08 16:29] VITALS: BP 141/69
[2018-01-08] MEDS: RIVAROXABAN 10 MG TABLET PO SCH (16:52)
[2018-01-08] MEDS ORDERED: Medication Not On Formulary EA (Rivaroxaban (Xarelto) 10 MG) PO SCH (17:00)
--- NOTE | 2018-01-08 18:38 | NUR ---
SBAR report received this morning, board updated. Pt assessed. No acute distress or SOB. Pt compliant with routinely scheduled medication administration. VS WNL. Pt able to ambulate steadily with FWW and walk around unit station. Bed in locked and lowest position with side rails up x2. Call light and personal items placed within reach. All safety and comfort needs met. Will continue to monitor and endorse to oncoming cnc machinist 2nd shift.
[2018-01-08 20:00] VITALS: BP 129/67
--- NOTE | 2018-01-08 20:00 | NUR ---
Patient received at bed, AAO X4. able to make needs known. No acute distress or SOB was noted. No complain of pain. All safety measures maintained. Bed is in low position and bed alarm and brake are on, side rails up x2. Call light and personal belonging within reach. Continue to monitor.
[2018-01-08] MEDS ORDERED: ZOLPIDEM 5 MG TABLET PO PRN (21:00)
[2018-01-08] MEDS: HYDROCODONE/APAP 5-325MG TABLET PO PRN (21:50)
[2018-01-08] MEDS ORDERED: INSULIN REGULAR, HUMAN 300 UNIT/3 ML VIAL SQ PRN (22:45)
[2018-01-08] MEDS ORDERED: DEXTROSE 50% 50 ML DISP.SYRIN IV PRN (22:45)
--- NOTE | 2018-01-09 05:58 | NUR ---
Patient is at bed. No acute distress or SOB was noted. pain assessed and reassessed after pain medication. All safety measures maintained. Bed is in low position and bed alarm and brake are on, side rails up x2. Call light and personal belonging within reach. Will endorse to morning shift accordingly.
[2018-01-09] MEDS: PANTOPRAZOLE SODIUM 40 MG TABLET.DR PO SCH (06:45)
[2018-01-09] MEDS: BLOOD SUGAR DIAGNOSTIC 1 EACH STRIP VI SCH ×4 (06:46→20:59)
[2018-01-09] MEDS: METFORMIN HCL 500 MG TABLET PO SCH ×2 (08:00→18:00)
[2018-01-09 08:15] VITALS: BP 129/70
[2018-01-09] MEDS: DOCUSATE SODIUM 100 MG CAPSULE PO SCH ×2 (08:18→17:00)
[2018-01-09] MEDS: LISINOPRIL 5 MG TABLET PO SCH (08:19)
[2018-01-09 16:09] VITALS: BP 98/64
[2018-01-09] MEDS: HYDROCODONE/APAP 5-325MG TABLET PO PRN (17:01)
[2018-01-09] MEDS: RIVAROXABAN 10 MG TABLET PO SCH (17:03)
--- NOTE | 2018-01-09 17:40 | NUR ---
SBAR report received, board updated. Pt AAOx4, assessed, no acute distress or SOB on NC. Compliant with some routinely scheduled medication administration, refusing lunch and dinner accu checks. Cooperative with therapies as provided. Pt reports pain managed with PRN medication at this time. Bed in locked and lowest position with side rails up x2. All safety and comfort measures implemented, and needs met promptly this shift. Call light and personal items placed within reach. Will continue to monitor and endorse to oncoming overnight caregiver.
--- NOTE | 2018-01-09 19:00 | NUR ---
Awake ambulating in the hallways with FWW during rounds. Denies any pain/discomforts at this time. No SOB/SOBOE on ambulation. Continue care as planned.
[2018-01-09 19:51] VITALS: BP 119/60
[2018-01-10 05:49] VITALS: BP 147/80
[2018-01-10] MEDS: BLOOD SUGAR DIAGNOSTIC 1 EACH STRIP VI SCH ×4 (05:54→21:00)
[2018-01-10] MEDS: PANTOPRAZOLE SODIUM 40 MG TABLET.DR PO SCH (05:54)
--- NOTE | 2018-01-10 06:06 | NUR ---
Shift End Report: Vs stable. No complaint presented all night. Kept refusing routine medications and accu checks stating she's only here for Physical Therapy. Slept well. No fall/injury reported. All needs attended and met. Continue current rehab plan of care.
[2018-01-10] MEDS: METFORMIN HCL 500 MG TABLET PO SCH ×2 (08:00→16:41)
[2018-01-10] MEDS: DOCUSATE SODIUM 100 MG CAPSULE PO SCH ×2 (08:24→16:49)
[2018-01-10] MEDS: LISINOPRIL 5 MG TABLET PO SCH (08:25)
[2018-01-10 08:29] VITALS: BP 119/60
[2018-01-10] MEDS: RIVAROXABAN 10 MG TABLET PO SCH (16:48)
[2018-01-10 17:18] VITALS: BP 113/71
--- NOTE | 2018-01-10 19:00 | NUR ---
Awake during initial rounds. Family at bedside. Denies any pain/discomforts at this time. Continue current plan of care.
--- NOTE | 2018-01-10 19:13 | NUR ---
PT STABLE THROUGHOUT the day. pt continues to refuse bp and blood sugar medications, and accu checks. however pt took blood thinner and colace. pt continues to ambulate with walker stand by. dressing changed. no signs of infection. will endorse to or rn nurse.
[2018-01-10 20:12] VITALS: BP 118/61
--- NOTE | 2018-01-10 21:00 | NUR ---
Again, patient refused accu-check ordered. Denies s/s of hypo/hyperglycemia. Will monitor.
--- NOTE | 2018-01-10 21:20 | NUR ---
Cold pack applied to incision site. Dressing dry and intact. no drainage noted to affected area.
--- NOTE | 2018-01-10 22:55 | NUR ---
Ambulated to the BR with FWW with slow but steady gait. Able to perform self care
[2018-01-11] MEDS: HYDROCODONE/APAP 5-325MG TABLET PO PRN ×3 (05:29→23:10)
--- NOTE | 2018-01-11 05:30 | NUR ---
Complaint of Right hip pain in scale of 8/10. [place] 1 tab given as ordered and needed. Will monitor.
[2018-01-11 05:54] VITALS: BP 144/67
--- NOTE | 2018-01-11 06:19 | NUR ---
Shift End Report: Still with mild pain on right hip incision site. Continue cold pack as per pt's choice. Afebrile. No fall/injury. All needs attended and met. Continue current rehab plan of care.
[2018-01-11 08:03] VITALS: BP 118/47
[2018-01-11] MEDS: DOCUSATE SODIUM 100 MG CAPSULE PO SCH ×2 (08:13→16:18)
[2018-01-11] MEDS: LISINOPRIL 5 MG TABLET PO SCH (08:14)
--- NOTE | 2018-01-11 08:28 | NUR ---
pt seen on rounding. pt continues to refuse blood pressure medications. explained benefits. pt continues to refuse. pt states that she didnt sleep because she had so many thoughts running through her head. provided comfort measure. no pain during assessment will continue to monitor.
--- NOTE | 2018-01-11 13:09 | NUR ---
INTERDISCIPLINARY TEAM CONFERENCE
[2018-01-11 16:17] VITALS: BP 107/59
[2018-01-11] MEDS: RIVAROXABAN 10 MG TABLET PO SCH (16:19)
--- NOTE | 2018-01-11 19:30 | NUR ---
pt stable throughout the day. no complications seen. vs stable. will endorse to hourly shift nurse.
--- NOTE | 2018-01-11 19:30 | NUR ---
Received pt at nursing station, ambulating with walker with steady gait. No acute distress noted. Verbally responsive and able to make needs known. Denies pain at this time. Safety maintained. Encouraged use of call light when in need of assistance. Will continue to monitor.
[2018-01-11 20:09] VITALS: BP 136/70
[2018-01-12 06:35] VITALS: BP 130/61
--- NOTE | 2018-01-12 07:51 | NUR ---
Received patient awake, alert and orientedx4. not in distress. Continue on pain management with good effect. walks with walker with PT/OT. tolerated well. no complaint of pain/discomfort. will continue monitor
[2018-01-12] MEDS: LISINOPRIL 5 MG TABLET PO SCH (09:00)
[2018-01-12] MEDS: DOCUSATE SODIUM 100 MG CAPSULE PO SCH ×2 (09:03→17:47)
[2018-01-12 10:38] VITALS: BP 114/51
[2018-01-12] MEDS: RIVAROXABAN 10 MG TABLET PO SCH (17:48)
[2018-01-12] MEDS: HYDROCODONE/APAP 5-325MG TABLET PO PRN (19:20)
--- NOTE | 2018-01-12 19:45 | NUR ---
Received pt sitting at edge of bed, drinking tea. AAO x 4. No acute distress noted. Verbally responsive and able to make needs known. Complaining of generalized pain and pain on right hip from physical therapy. Medicated with PRN pain medication by AM nurse. Ice pack provided. All safety measures and fall precautions maintained. Call light and all personal belongings within reach. Will continue to monitor.
[2018-01-12 20:00] VITALS: BP 124/75
[2018-01-13 06:09] VITALS: BP 136/61
[2018-01-13] MEDS: LISINOPRIL 5 MG TABLET PO SCH (08:55)
[2018-01-13] MEDS: HYDROCODONE/APAP 5-325MG TABLET PO PRN ×2 (08:55→17:31)
[2018-01-13] MEDS: DOCUSATE SODIUM 100 MG CAPSULE PO SCH ×2 (08:55→17:30)
[2018-01-13] MEDS: RIVAROXABAN 10 MG TABLET PO SCH (17:35)
[2018-01-13 20:00] VITALS: BP 116/51
--- NOTE | 2018-01-13 20:10 | NUR ---
Patient received at bed, sitting and watching TV. AAO X4. able to make needs known. No acute distress or SOB was noted. No complain of pain. All safety measures maintained. Bed is in low position and bed alarm and brake are on, side rails up x2. Call light and personal belonging within reach. Continue to monitor.
[2018-01-14 06:34] VITALS: BP 122/54
--- NOTE | 2018-01-14 07:11 | NUR ---
Patient has a good sleep last night and was stable throughout the shift. ambulate with walker. No acute distress or SOB was noted. pain assessed no pain medication was requested by patient only ice bag. All safety measures maintained. Bed is in low position and bed alarm and brake are on, side rails up x2. Call light and personal belonging within reach. Will endorse to morning shift accordingly.
[2018-01-14] MEDS: HYDROCODONE/APAP 5-325MG TABLET PO PRN ×2 (07:45→19:21)
[2018-01-14] MEDS: LISINOPRIL 5 MG TABLET PO SCH (08:20)
[2018-01-14] MEDS: DOCUSATE SODIUM 100 MG CAPSULE PO SCH ×2 (08:20→17:10)
--- NOTE | 2018-01-14 09:03 | NUR ---
Received patient awake, alert and orientedx4. Continue on pain management on right hip with good effect. Continue PT/OT for activities daily living and ambulation. not in distress. will continue monitor
[2018-01-14 09:07] VITALS: BP 124/51
[2018-01-14] MEDS: RIVAROXABAN 10 MG TABLET PO SCH (17:11)
[2018-01-14 17:17] VITALS: BP 126/59
--- NOTE | 2018-01-14 18:09 | NUR ---
Patient request on not scheduled shower in the afternoon, given around 5 pm. Patient is very thankful and verbalize comfort. For follow up consult on surgeon at 2pm josey. Continue on PT/OT for activities and ambulation. will continue monitor
--- NOTE | 2018-01-14 19:45 | NUR ---
Received pt in bed, AAO x 4, drinking tea. No acute distress noted. Verbally responsive and able to make needs known. Denies pain or discomfort at this time. Verbally responsive and able to make needs known. All safety measures and fall precautions maintained. Call light and all personal belongings within reach. Will continue to monitor.
[2018-01-14 20:25] VITALS: BP 133/64
[2018-01-15 06:35] VITALS: BP 133/78
[2018-01-15] MEDS: DOCUSATE SODIUM 100 MG CAPSULE PO SCH ×2 (08:30→17:01)
[2018-01-15] MEDS: LISINOPRIL 5 MG TABLET PO SCH (08:30)
[2018-01-15 08:41] VITALS: BP 125/50
--- NOTE | 2018-01-15 08:43 | NUR ---
Received patient awake alert and orientedx4. Continue on pain management. For ff up surgeron consult at 2pm. jewelry department supervisor time at 1pm. will continue monitor
--- NOTE | 2018-01-15 14:57 | NUR ---
Patient went out at 1pm for outside surgeon consult. Came back at 259pm in stable condition, staple removed, no new order from the surgeon. will continue monitor
[2018-01-15] MEDS: HYDROCODONE/APAP 5-325MG TABLET PO PRN (17:01)
[2018-01-15] MEDS: RIVAROXABAN 10 MG TABLET PO SCH (17:04)
[2018-01-15 17:31] VITALS: BP 127/57
[2018-01-15 19:37] VITALS: BP 119/49
--- NOTE | 2018-01-16 04:50 | NUR ---
aaox4 ambulatory with walker no acute distress noted. needs attended. voiding well. denies any pain nor any discomfort. right hip incision with cynthia out taken yesterday with steri strips intact. right hip with some redness noted. will monitor patient. on fall precautions . call murphy within reach. kept comfortable.
[2018-01-16 05:45] VITALS: BP 120/76
--- NOTE | 2018-01-16 07:57 | NUR ---
SBAR report received, board updated. Pt received resting in bed. AAOx4. Plan for today discussed. All comfort and safety needs attended to. No acute distress and denies pain at this time. Call light within reach, will continue to monitor.
[2018-01-16] MEDS: DOCUSATE SODIUM 100 MG CAPSULE PO SCH ×2 (08:33→17:14)
[2018-01-16] MEDS: LISINOPRIL 5 MG TABLET PO SCH (08:33)
[2018-01-16] MEDS: HYDROCODONE/APAP 5-325MG TABLET PO PRN ×2 (10:09→22:27)
[2018-01-16] MEDS: RIVAROXABAN 10 MG TABLET PO SCH (17:15)
--- NOTE | 2018-01-16 18:15 | NUR ---
No changes to Pt status during this shift. All needs promptly attended to. Will continue to monitor and endorse to oncoming assistant shift supervisor nurse.
[2018-01-16 20:00] VITALS: BP 130/69
--- NOTE | 2018-01-16 20:00 | NUR ---
Patient received, sitting on a chair in her room and talking to a visitor. AAO X4. Able to make needs known. No acute distress or SOB was noted. No complain of pain. All safety measures maintained. Bed is in low position and bed alarm and brake are on, side rails up x2. Call light and personal belonging within reach. Continue to monitor.
[2018-01-16 20:32] VITALS: BP 140/47
--- NOTE | 2018-01-17 05:30 | NUR ---
Patient has a good sleep last night and was stable throughout the shift. Ambulate with walker. No acute distress or SOB was noted. Pain assessed and pain medication was given at 2230. By patient request ice bag was provided. All safety measures maintained. Bed is in low position and bed alarm and brake are on, side rails up x2. Call light and personal belonging within reach. Will endorse to morning shift accordingly.
[2018-01-17 07:16] VITALS: BP 125/61
[2018-01-17 07:38] VITALS: BP 115/52
[2018-01-17] MEDS: DOCUSATE SODIUM 100 MG CAPSULE PO SCH ×2 (08:40→16:17)
[2018-01-17] MEDS: LISINOPRIL 5 MG TABLET PO SCH (08:40)
[2018-01-17] MEDS: HYDROCODONE/APAP 5-325MG TABLET PO PRN ×2 (08:40→20:42)
[2018-01-17 16:14] VITALS: BP 111/50
[2018-01-17] MEDS: RIVAROXABAN 10 MG TABLET PO SCH (16:22)
--- NOTE | 2018-01-17 18:16 | NUR ---
pt stable throughout the day. pt participated in therapy. no changes in vital signs trend. pt refused bp med. no signs of infection on right hip site. will endorse to bilingual speech therapist nurse.
[2018-01-17 20:00] VITALS: BP 125/67
--- NOTE | 2018-01-17 20:05 | NUR ---
Patient received while she is walking around with wheelchair. assessment was done after patient came back to her room. AAO X4. Able to make needs known. No acute distress or SOB was noted. Complained of pain and coldness on her feet. All safety measures maintained. Bed is in low position and bed alarm and brake are on, side rails up x2. Call light and personal belonging within reach. Continue to monitor.
--- NOTE | 2018-01-17 20:40 | NUR ---
Pain medication was given along with ice pocket to address her pain on the surgical site. Patient also requested warm water to put her cold feet on it. Her feet washed with warm water, then pat dried with wash towel and applied moisturizing cream. She did feel better. Continue to monitor.
--- NOTE | 2018-01-18 06:45 | NUR ---
End of the shift report Patient complained of not having a good sleep until 4am because of noise from the other patient in next room, but she was stable throughout the shift. Ambulate with walker. No acute distress or SOB was noted. Pain assessed and pain medication was given at 2039. By patient request ice bag was provided. All safety measures maintained. Bed is in low position and bed alarm and brake are on, side rails up x2. Call light and personal belonging within reach. Will endorse to morning shift accordingly.
--- NOTE | 2018-01-18 07:10 | NUR ---
Nurse notes: Received patient awake, alert and oriented x 4, sitting on her chair at the bedside, no SOB or distress. assessed for pain, denies any pain or discomforts at this time. call light and telephone within reach. oriented patient about hourly rounding. safety precautions observed. Will continue to monitor.
[2018-01-18 07:15] VITALS: BP 144/84
[2018-01-18] MEDS: LISINOPRIL 5 MG TABLET PO SCH (08:34)
[2018-01-18] MEDS: DOCUSATE SODIUM 100 MG CAPSULE PO SCH ×2 (08:35→17:32)
--- NOTE | 2018-01-18 13:33 | NUR ---
INTERDISCIPLINARY TEAM CONFERENCE
[2018-01-18 14:30] VITALS: BP 137/68
--- NOTE | 2018-01-18 14:47 | NUR ---
patient was seen and examined by Dr. Barth. Dr. Barth informed the patient the importance of blood sugar check before meals due to elevated hemoglobin A1C result. But patient refused. Explained the purpose as well as the risks and benefits but still patient refused stated " No I do not want. I will do it at home but not here".
[2018-01-18] MEDS: RIVAROXABAN 10 MG TABLET PO SCH (17:33)
--- NOTE | 2018-01-18 17:53 | NUR ---
END OF SHIFT REPORT; PATIENT REMAINED STABLE THROUGHOUT THE SHIFT WITH NO ACUTE CHANGES. NO CHANGES IN LOC OR MENTATION. NO SOB OR DISTRESS. DENIES ANY PAIN OR DISCOMFORTS. ALL NEEDS WERE ATTENDED AND ANTICIPATED. CALL LIGHT ANSWERED PROMPTLY. PATIENT ABLE TO AMBULATE USING HER FWW WITH STEADY GAIT. HOURLY ROUNDING DONE. CALL LIGHT AND TELEPHONE WITHIN REACH AT ALL TIMES, BED ALARM AND BED BRAKE SON FOR SAFETY. WILL ENDORSE ACCORDINGLY TO INCOMING SHIFT FOR CONTINUITY OF CARE.
[2018-01-18] MEDS: HYDROCODONE/APAP 5-325MG TABLET PO PRN (19:45)
[2018-01-18 19:59] VITALS: BP 112/51
[2018-01-19 05:40] VITALS: BP 148/64
--- NOTE | 2018-01-19 05:46 | NUR ---
remained stable the whole shift. AAOx4 ambulatory ad lori. needs attended. voiding well. right hip incision clean dry and healing with steristrips intact. norco given for pain as needed. slept well most of the shift. VSS. no acute distress noted. kept comfortable.
--- NOTE | 2018-01-19 07:21 | NUR ---
patient assisted to shower at this time, no complaints of pain at this time, no signs of distress noted, call light in reach, all needs met at this time
[2018-01-19] MEDS: LISINOPRIL 5 MG TABLET PO SCH (09:00)
[2018-01-19] MEDS: DOCUSATE SODIUM 100 MG CAPSULE PO SCH ×2 (09:00→17:00)
[2018-01-19] MEDS: RIVAROXABAN 10 MG TABLET PO SCH (17:00)
[2018-01-19 20:00] VITALS: BP 122/48
--- NOTE | 2018-01-19 20:51 | NUR ---
Received pt resting comfortably in bed and watching tv. AAO x4. No acute distress noted. No c/o pain or discomfort. VS WNL, however refused for temperature check, explained risks and benefits to the pt and still refused. Safety measures maintained. Call light and personal belongings within reach. Will continue to monitor.
[2018-01-19] MEDS: HYDROCODONE/APAP 5-325MG TABLET PO PRN (22:20)
[2018-01-20 06:26] VITALS: BP 135/57
--- NOTE | 2018-01-20 08:11 | NUR ---
Patient noted walking around unit with walker, no complaints of pain at this time, no signs of distress, meal tray placed on bed side table, call ight placed in reach, all needs met at this time
[2018-01-20] MEDS: DOCUSATE SODIUM 100 MG CAPSULE PO SCH ×2 (09:28→17:32)
[2018-01-20] MEDS: LISINOPRIL 5 MG TABLET PO SCH (09:28)
[2018-01-20] MEDS: HYDROCODONE/APAP 5-325MG TABLET PO PRN ×2 (11:50→21:03)
[2018-01-20] MEDS: RIVAROXABAN 10 MG TABLET PO SCH (17:31)
--- NOTE | 2018-01-20 19:42 | NUR ---
Received pt ambulating in the hallway using walker. AAO x4. No acute distress noted. No c/o pain or discomfort at this time. Pt to be discharge tomorrow, TMS signed by Dr. Barth. Safety measures maintained. Will continue to monitor.
[2018-01-20 20:41] VITALS: BP 105/51
[2018-01-21 06:00] VITALS: BP 137/43
--- NOTE | 2018-01-21 07:19 | NUR ---
Patient noted sitting up in chair, bedside table and call light in reach, bed locked and in lowest position, no complaints of pain, no signs of distress noted, all needs met
[2018-01-21 09:00] VITALS: BP 109/56
[2018-01-21] MEDS: LISINOPRIL 5 MG TABLET PO SCH (09:00)
[2018-01-21] MEDS: DOCUSATE SODIUM 100 MG CAPSULE PO SCH (09:16)
--- NOTE | 2018-01-21 14:44 | NUR ---
Patient left facility at this time via ambulance and gurney, no complaints of pain at this time, no signs of distress noted, left with quad cane, inventory sheet signed, exit care performed, discharge instructions given, 130/65, 76 pulse, 98.1 oral temperature, 99% oxygen on room air, MD Barth and Deepika aware of patients discharge
== END 2018-01-21 14:40 | disposition home health service (06) | DRG 560 ==
PROVIDERS: ADMIT Physical Medicine & Rehabilitation Pain Medicine; ATTEND Physical Medicine & Rehabilitation Pain Medicine
DX: Z47.1 Aftercare following joint replacement surgery (principal); D68.59 Other primary thrombophilia; Z96.641 Presence of right artificial hip joint; D50.9 Iron deficiency anemia, unspecified; E66.9 Obesity, unspecified; Z68.27 Body mass index [BMI] 27.0-27.9, adult; E78.5 Hyperlipidemia, unspecified; I10 Essential (primary) hypertension; I25.10 Atherosclerotic heart disease of native coronary artery without angina pectoris; M19.90 Unspecified osteoarthritis, unspecified site; R26.9 Unspecified abnormalities of gait and mobility; E11.65 Type 2 diabetes mellitus with hyperglycemia; Z88.1 Allergy status to other antibiotic agents; Z88.0 Allergy status to penicillin; R26.2 Difficulty in walking, not elsewhere classified; M25.551 Pain in right hip
CPT/HCPCS: 36415; 73502; 83735; 84100; 85025; 92526; 92610; 97110; 97112; 97116; 97530; 97535; A4663; J1815